=== PATIENT | male | born 1980 | race American Indian/Alaskan Native ===

== ENCOUNTER 2016-10-18 13:26 | Emergency (ER) | payer OTHER ==
[2016-10-18 13:38] VITALS: BMI 23.6
[2016-10-18 13:41] VITALS: TEMP 97.9
[2016-10-18] MEDS ORDERED: Sodium Chloride 0.9% 1,000 ML IV STA ×3 (13:52→15:00)
--- NOTE | 2016-10-18 13:58 | ED PDOC ---
Arrival/HPI - General Chief Complaint: High Blood Sugar Time Seen by Provider: 10/18/16 13:44 Historian: Patient, Spouse - History of Present Illness Narrative History of Present Illness (Text): 10/18/16 13:52 A 36 year old male, whose past medical history includes diabetes on Novolog, presents to the emergency department complaining of high blood sugar. reports patient took 14 units of Novolog approximately 1 hour prior to arrival. Patient notes generalized weakness, nausea and non-bilious non-bloody vomiting. Patient denies any fever, chills, body aches, diarrhea, abdominal pain, urinary symptoms, chest pain, shortness of breath, cough, headache, dizziness or any other complaints. Patient admits to drinking alcohol last night. PMD: Dr. Fierro Time/Duration: 1 hour Symptom Course: Unchanged Quality: Other Context: Home Past Medical History - Provider Review Nursing Documentation Reviewed: Yes - Infectious Disease Hx of Infectious Diseases: None - Tetanus Immunization Tetanus Immunization: Unknown - Reproductive Currently : No - Cardiac Hx Cardiac Disorders: No - Pulmonary Hx Respiratory Disorders: No - Neurological Hx Neurological Disorder: No - HEENT Hx HEENT Disorder: No - Renal Hx Renal Disorder: No - Endocrine/Metabolic Hx Endocrine Disorders: Yes Hx Diabetes Mellitus Type 1: Yes - Hematological/Oncological Hx Blood Disorders: No - Integumentary Hx Dermatological Disorder: No - Musculoskeletal/Rheumatological Hx Falls: No - Gastrointestinal Hx Gastrointestinal Disorders: No - Genitourinary/Gynecological Hx Genitourinary Disorders: No - Psychiatric Hx Psychophysiologic Disorder: No Hx Substance Use: No - Anesthesia Hx Anesthesia: No Hx Anesthesia Reactions: No Hx Malignant Hyperthermia: No Family/Social History - Physician Review Nursing Documentation Reviewed: Yes Family/Social History: No Known Family HX Smoking Status: Former Smoker Hx Alcohol Use: Yes Frequency of alcohol use: Socially Hx Substance Use: No Allergies/Home Meds Allergies/Adverse Reactions: Allergies No Known Allergies Allergy (Verified 06/22/16 16:03) Home Medications: Home Meds Medication Instructions Recorded Confirmed Gabapentin [Neurontin] 400 mg PO BID 09/17/16 09/17/16 Review of Systems - Physician Review All systems were reviewed & negative as marked: Yes - Review of Systems Constitutional: Fatigue (Generalized weakness), Other (High blood sugar). absent: Fevers, Night Sweats Respiratory: absent: SOB Cardiovascular: absent: Chest Pain Gastrointestinal: Nausea, Vomiting. absent: Abdominal Pain, Diarrhea Genitourinary Male: absent: Dysuria, Frequency, Hematuria Musculoskeletal: absent: Myalgias Neurological: absent: Headache, Dizziness Physical Exam Vital Signs Reviewed: Yes Vital Signs Temp Pulse Resp BP Pulse Ox 10/18/16 18:03 94 H 16 135/75 96 10/18/16 16:08 95 H 16 147/74 99 10/18/16 13:27 97.9 F 100 H 18 146/103 H 99 Temperature: Afebrile Blood Pressure: Hypertensive Pulse: Tachycardic Respiratory Rate: Normal Appearance: Positive for: Well-Appearing, Non-Toxic, Comfortable Pain Distress: None Mental Status: Positive for: Alert and Oriented X 3 Finger Stick Blood Glucose: 500 - Systems Exam Head: Present: Atraumatic, Normocephalic Pupils: Present: PERRL Extroacular Muscles: Present: EOMI Conjunctiva: Present: Normal Mouth: Present: Moist Mucous Membranes Neck: Present: Normal Range of Motion Respiratory/Chest: Present: Clear to Auscultation, Good Air Exchange. No: Respiratory Distress, Accessory Muscle Use Cardiovascular: Present: Regular Rate and Rhythm, Normal S1, S2. No: Murmurs Abdomen: Present: Normal Bowel Sounds. No: Tenderness, Distention, Peritoneal Signs Back: Present: Normal Inspection Upper Extremity: Present: Normal Inspection. No: Cyanosis, Edema Lower Extremity: Present: Normal Inspection. No: Edema Neurological: Present: GCS=15, CN II-XII Intact, Speech Normal Skin: Present: Warm, Dry, Normal Color. No: Rashes Psychiatric: Present: Alert, Oriented x 3, Normal Insight, Normal Concentration Medical Decision Making ED Course and Treatment: 10/18/16 13:52 Impression: A 36 year old male with high blood sugar. Patient notes generalized weakness, nausea and non-bilious non-bloody vomiting. Patients last alcoholic drink was last night. Differential Diagnosis included but are not limited to: Hyperglycemia Plan: -- Labs -- IV fluids and Zofran -- Reassess and disposition Progress Notes: Patient was treated with NS 1 L x 3 boluses with signifcant improvement of his glucose. He no longer has symptoms. Zofran improved nausea. He is able to tolerate 2 glasses of PO water. He feels better and wants to go home. He will not drink alcohol like this again in light of his diabetes. He will make sure to follow up with his doctor Dr. Fierro and continue to take his medications. - Critical Care Critical Care Minutes: 60 minutes - Lab Interpretations Lab Results: 10/18/16 14:05 10/18/16 14:05 Lab Results 10/18/16 17:20: pO2 170 H, VBG pH 7.37, VBG pCO2 39.0 L, VBG HCO3 22.5, VBG Total CO2 23.7, VBG O2 Sat (Calc) 97.5 H, VBG Base Excess -2.5 L, VBG Potassium 3.4 L, Sodium 143.0, Chloride 113.0 H, Glucose 234 H, Lactate 1.5, FiO2 21.0, Venous Blood Potassium 3.4 L 10/18/16 16:35: POC Glucose (mg/dL) 211 H 10/18/16 14:56: POC Glucose (mg/dL) 302 H 10/18/16 14:05: WBC 8.0, RBC 4.55, Hgb 14.0, Hct 39.2 L, MCV 86.2, MCH 30.8, MCHC 35.7, RDW 12.8, Plt Count 303, MPV 8.6, Gran % 82.6 H, Lymph % (Auto) 10.1 L, [place] % (Auto) 6.2 H, Eos % (Auto) 0.9 L, Baso % (Auto) 0.2, Gran # 6.61 H, Lymph # 0.8 L, [place] # 0.5, Eos # 0.1, Baso # 0.02, pO2 67 H, VBG pH 7.26 L, VBG pCO2 39.0 L, VBG HCO3 17.5 L, VBG Total CO2 18.7 L, VBG O2 Sat (Calc) 93.4 H, VBG Base Excess -9.0 L, VBG Potassium 3.5 L, Sodium 141.0, Chloride 103.0, Glucose 475 H* D, Lactate 3.5 H, FiO2 21.0, Potassium 3.4 L, Carbon Dioxide 18 L , Anion Gap 25 H, BUN 14, Creatinine 1.1, Est GFR ( Amer) > 60, Est GFR ( Non-Af Amer) > 60, Random Glucose 490 H* D, Calcium 9.2, Phosphorus 4.9 H, Magnesium 1.9, Total Bilirubin 1.0, AST 301 H, ALT 145 H, Alkaline Phosphatase 98, Total Protein 8.0, Albumin 4.4, Globulin 3.6, Albumin/Globulin Ratio 1.2, Venous Blood Potassium 3.5 L, Alcohol, Quantitative < 10 10/18/16 13:44: POC Glucose (mg/dL) > 500 H* I have reviewed the lab results: Yes - Medication Orders Current Medication Orders: Discontinued Medications Sodium Chloride (Sodium Chloride 0.9%) 1,000 mls @ 999 mls/hr IV .Q1H1M STA Stop: 10/18/16 14:52 Last Admin: 10/18/16 14:13 Dose: 999 MLS/HR eMAR Start Stop Document 10/18/16 14:13 HI (Rec: 10/18/16 14:[id number]) Intravenous Solution Start Date 10/18/16 Start Time 14:00 Sodium Chloride (Sodium Chloride 0.9%) 1,000 mls @ 999 mls/hr IV .Q1H1M STA Stop: 10/18/16 14:52 Last Admin: 10/18/16 14:13 Dose: 999 MLS/HR eMAR Start Stop Document 10/18/16 14:13 HI (Rec: 10/18/16 14:13 [place] [id number]) Intravenous Solution Start Date 10/18/16 Start Time 14:00 Sodium Chloride (Sodium Chloride 0.9%) 1,000 mls @ 999 mls/hr IV .Q1H1M STA Stop: 10/18/16 16:00 Last Admin: 10/18/16 16:00 Dose: 999 MLS/HR eMAR Start Stop Document 10/18/16 16:00 HI (Rec: 10/18/16 16:00 [place] [id number]) Intravenous Solution Start Date 10/18/16 Start Time 16:00 Ondansetron HCl (Zofran Inj) 4 mg IVP STAT STA Stop: 10/18/16 14:03 Last Admin: 10/18/16 14:12 Dose: 4 MG IVP Administration Document 10/18/16 14:12 HI (Rec: 10/18/16 14:12 [place] [id number]) Charges for Administration # of IVP Administrations 1 Ondansetron HCl (Zofran Inj) 4 mg IVP STAT STA Stop: 10/18/16 15:52 Last Admin: 10/18/16 16:03 Dose: 4 MG IVP Administration Document 10/18/16 16:03 [place] (Rec: 10/18/16 16:03 [place] [id number]) Charges for Administration # of IVP Administrations 1 Potassium Chloride (K-Dur 20 Meq Er Tab) 40 meq PO STAT STA Stop: 10/18/16 15:01 Last Admin: 10/18/16 16:03 Dose: 40 MEQ - Scribe Statement The provider has reviewed the documentation as recorded by the Scribe Sydney Gonzales Provider Scribe Attestation: All medical record entries made by the Scribe were at my direction and personally dictated by me. I have reviewed the chart and agree that the record accurately reflects my personal performance of the history, physical exam, medical decision making, and the department course for this patient. I have also personally directed, reviewed, and agree with the discharge instructions and disposition. Disposition/Present on Arrival - Present on Arrival Any Indicators Present on Arrival: Yes History of DVT/PE: No History of Uncontrolled Diabetes: Yes Urinary Catheter: No History of Decub. Ulcer: No History Surgical Site Infection Following: None - Disposition Have Diagnosis and Disposition been Completed?: Yes Diagnosis: Diabetes Disposition: HOME/ ROUTINE Disposition Time: 18:00 Patient Plan: Discharge Condition: IMPROVED Discharge Instructions (ExitCare): Dehydration (DC), Diabetes Mellitus Type 2 in Adults (ED) Additional Instructions: Mr Sifuentes, thank you for letting us take care of you today. Your provider was Dr. Doll. You were treated for Vomiting, Hyperglycemia. The emergency medical care you received today was directed at your acute symptoms. If you were prescribed any medication, please fill it and take as directed. It may take several days for your symptoms to resolve. Return to the Emergency Department if your symptoms worsen, do not improve, or if you have any other problems. Please contact your doctor or call one of the physicians/clinics you have been referred to that are listed on the Patient Visit Information form that is included in your discharge packet. Bring any paperwork you were given at discharge with you along with any medications you are taking to your follow up visit. Our treatment cannot replace ongoing medical care by a primary care provider (PCP) outside of the emergency department. Thank you for allowing the [facility] team to be part of your care today. If you had an X-Ray or CT scan: A Radiologist will review the ED reading if any change in treatment is needed we will contact you. If you had a blood, urine, or wound culture: It will take several days for the results, if any change in treatment is needed we will contact you. If you had an STI test: It will take 48 hours for the results. Please call after 1 week if you have not heard back. Prescriptions: Ranitidine HCl [Zantac] 150 mg PO BID PRN #30 tablet PRN Reason: Pain, Mild (1-3) Ondansetron ODT [Zofran ODT] 4 mg PO Q6 #14 odt Referrals: Franck Fierro MD [Family Provider] - Follow up with primary Forms: WORK NOTE
[2016-10-18 14:16] LABS: ADD MANUAL DIFF? NO
[2016-10-18 14:18] LABS: BASO # 0.02 K/mm3 (0.0-2.0); BASO % 0.2 % (0.0-3.0); EOS # 0.1 (0.0-0.7); EOS % 0.9 % (1.5-5.0); GRAN # 6.61 (1.4-6.5); GRAN % 82.6 % (50.0-68.0); HEMATOCRIT 39.2 % (42.0-52.0); LYMPH # 0.8 (1.2-3.4); LYMPH % 10.1 % (22.0-35.0); MEAN CELL VOLUME 86.2 fL (80.0-105.0); MEAN CORPUSCULAR HEMOGLOBIN 30.8 pg (25.0-35.0); MEAN CORPUSCULAR HGB CONC 35.7 g/dl (31.0-37.0); MEAN PLATELET VOLUME 8.6 fl (7.0-11.0); MONO # 0.5 (0.1-0.6); MONO % 6.2 % (1.0-6.0); PLATELET COUNT 303 10^3/uL (120.0-450.0); RED CELL DISTRIBUTION WIDTH 12.8 % (11.5-14.5); VENOUS BLOOD PH 7.26 (7.32-7.43)
[2016-10-18 14:29] LABS: ALB/GLOB RATIO 1.2 (1.1-1.8); ALKALINE PHOSPHATASE 98 U/L (38-133); ALT/SGPT 145 U/L (7-56); AST/SGOT 301 U/L (15-59); BLOOD UREA NITROGEN 14 mg/dL (7-21); CALCIUM 9.2 mg/dL (8.4-10.5); CARBON DIOXIDE 18 mmol/L (21-33); CHLORIDE 99 mmol/L (98-107); GFR AFRICAN-AMERICAN > 60; MAGNESIUM 1.9 mg/dL (1.7-2.2); PHOSPHOROUS 4.9 mg/dL (2.5-4.5); POTASSIUM 3.4 mmol/L (3.6-5.0); SODIUM 139 mmol/L (132-148)
[2016-10-18 14:39] LABS: GLUCOSE,RANDOM 490 mg/dL (70-110)
[2016-10-18] MEDS ORDERED: Potassium Chloride 20 mEq ER Tab PO STA (15:00)
[2016-10-18 16:09] VITALS: RESP 16
[2016-10-18 17:30] LABS: VENOUS BLOOD GAS BASE EXCESS -2.5 mmol/L (0.0-2.0); VENOUS BLOOD PH 7.37 (7.32-7.43)
[2016-10-18 18:05] VITALS: BP 135/75; PULSE 94; O2SAT 96
== END 2016-10-18 17:55 | disposition home or self-care (01) ==
LOC: ED 13:26
DX: E10.65 Type 1 diabetes mellitus with hyperglycemia (principal); Z79.4 Long term (current) use of insulin; Z87.891 Personal history of nicotine dependence
CPT/HCPCS: 80053; 80320; 82803; 82948; 83735; 84100; 85025; 96374; 96376; 99291; J2405; J7040

== ENCOUNTER 2016-10-19 11:27 | Inpatient (IN) | payer OTHER ==
[2016-10-19 11:27] VITALS: BMI 23.6
[2016-10-19] MEDS ORDERED: Sodium Chloride 0.9% 1,000 ML IV STA ×4 (11:40→13:42)
--- NOTE | 2016-10-19 11:47 | ED PDOC ---
Arrival/HPI - General Time Seen by Provider: 10/19/16 11:30 Historian: Patient - Critical Care Critical Care Minutes: 60 minutes - History of Present Illness Narrative History of Present Illness (Text): 10/19/16 11:32 Jan Sifuentes is a 36 year old male whose past medical history includes Diabetes (on Novolog) and Gastric Ulcers who presents to the Emergency department complaining of persistent vomiting. Symptoms are also accompanied with multiple diarrheal episodes. Patient states he has been compliant with medications prescribed to him in the Emergency department but has not taken his Diabetes medications since yesterday. Patient the day before yesterday drank heavily and began vomiting any fluids or solids starting yesterday. He was hydrated and sugar was controlled in the Emergency department and was discharged home. Patient denies any fever, chills, chest pain, shortness of breath, abdominal pain, urinary symptoms, back pain, neck pain, headache, dizziness, or any other complaints. PMD: Dr. Fierro Time/Duration: Other (1-2 days) Symptom Onset: Sudden Activities at Onset: Light Context: Home Past Medical History - Provider Review Nursing Documentation Reviewed: Yes - Infectious Disease Hx of Infectious Diseases: None - Tetanus Immunization Tetanus Immunization: Unknown - Reproductive Currently : No - Cardiac Hx Cardiac Disorders: No - Pulmonary Hx Respiratory Disorders: No - Neurological Hx Neurological Disorder: No - HEENT Hx HEENT Disorder: No - Renal Hx Renal Disorder: No - Endocrine/Metabolic Hx Endocrine Disorders: Yes Hx Diabetes Mellitus Type 1: Yes - Hematological/Oncological Hx Blood Disorders: No - Integumentary Hx Dermatological Disorder: No - Musculoskeletal/Rheumatological Hx Falls: No - Gastrointestinal Hx Gastrointestinal Disorders: No - Genitourinary/Gynecological Hx Genitourinary Disorders: No - Psychiatric Hx Psychophysiologic Disorder: No Hx Substance Use: No - Anesthesia Hx Anesthesia: No Hx Anesthesia Reactions: No Hx Malignant Hyperthermia: No Family/Social History - Physician Review Nursing Documentation Reviewed: Yes Family/Social History: No Known Family HX Smoking Status: Former Smoker Hx Alcohol Use: Yes Hx Substance Use: No Allergies/Home Meds Allergies/Adverse Reactions: Allergies No Known Allergies Allergy (Verified 10/19/16 14:35) Home Medications: Home Meds Medication Instructions Recorded Confirmed Gabapentin [Neurontin] 400 mg PO BID 09/17/16 10/19/16 Insulin Aspart, Recombinant 0 unit 04/15/17 [Novolog] Review of Systems - Physician Review All systems were reviewed & negative as marked: Yes - Review of Systems Constitutional: Normal. absent: Fevers Eyes: Normal ENT: Normal Respiratory: Normal. absent: SOB, Cough Cardiovascular: Normal Gastrointestinal: Diarrhea, Nausea, Vomiting. absent: Abdominal Pain Genitourinary Male: Normal. absent: Frequency, Hematuria Musculoskeletal: Normal. absent: Back Pain, Neck Pain Skin: Normal Neurological: Normal. absent: Headache, Dizziness Endocrine: Normal Hemo/Lymphatic: Normal Psychiatric: Normal Physical Exam Vital Signs Reviewed: Yes Vital Signs Temp Pulse Resp BP Pulse Ox 10/19/16 11:45 97.6 F 102 H 18 148/86 100 10/19/16 11:39 97.6 F 107 H 20 148/86 99 Temperature: Afebrile Blood Pressure: Normal Pulse: Regular Respiratory Rate: Normal Appearance: Positive for: Well-Appearing, Non-Toxic, Comfortable Pain Distress: None Mental Status: Positive for: Alert and Oriented X 3 - Systems Exam Head: Present: Atraumatic, Normocephalic Pupils: Present: PERRL Extroacular Muscles: Present: EOMI Conjunctiva: Present: Normal Mouth: Present: Moist Mucous Membranes Neck: Present: Normal Range of Motion Respiratory/Chest: Present: Clear to Auscultation, Good Air Exchange. No: Respiratory Distress, Accessory Muscle Use Cardiovascular: Present: Regular Rate and Rhythm, Normal S1, S2. No: Murmurs Abdomen: Present: Normal Bowel Sounds. No: Tenderness, Distention, Peritoneal Signs Rectal: Present: Other (Guaic Positive) Neurological: Present: GCS=15, CN II-XII Intact, Speech Normal Skin: Present: Warm, Dry, Normal Color. No: Rashes Psychiatric: Present: Alert, Oriented x 3, Normal Insight, Normal Concentration Medical Decision Making ED Course and Treatment: 10/19/16 11:32 Impression: 36 year old male with persistent vomiting and diarrhea since yesterday. Vomit is noticeably dark. Differential Diagnosis include but are not limited to: Gastric Ulvers vs. GI Bleed vs. Gastritis vs. DKA Plan: -- Chest X-ray -- EKG -- Protonix -- IV Fluids -- Zofran -- Labs -- Reassess and disposition Prior Visits: Notes and results from previous visits were reviewed. Patient was last seen in the Emergency department Progress Notes: 10/19/16 12:22 EKG: Ordered, reviewed, and independently interpreted the EKG. Rate : 102 BPM Rhythm : Sinus Tachycardia Interpretation : RBBB 10/19/16 13:23 Procedure: Chest X-Ray Dictator: Hua Patino MD Impression No active disease. No significant interval change compared to the prior examination(s). 10/19/16 13:41 Glucose taken >410 10/19/16 14:01 Patient noted to have elevated glucose with AG in the 30's and low bicarb. Insulin bolus and drip ordered. Patient already received 2 liters and 2 additional NS liters were ordered. Case discussed with Dr. Christopher who states he will come in and evaluate the patient. 10/19/16 14:13 Dr. Bravo will accept patient into his service. - Critical Care Critical Care Minutes: 60 minutes - Lab Interpretations Lab Results: 10/19/16 12:20 10/19/16 13:14 Lab Results 10/19/16 14:05: pO2 192 H, VBG pH 7.03 L*, VBG pCO2 12.0 L*, VBG HCO3 3.2 L, VBG Total CO2 3.6 L, VBG O2 Sat (Calc) 98.2 H, VBG Base Excess -25.6 L, VBG Potassium 4.5, Sodium 135.0, Chloride 108.0 H, Glucose 511 H* D, Lactate 1.6, FiO2 21.0, Venous Blood Potassium 4.5 10/19/16 13:14: Sodium 138, Chloride 106, Potassium 4.6, Carbon Dioxide < 5 L D , Anion Gap 32 H, BUN 9, Creatinine 1.0, Est GFR ( Amer) > 60, Est GFR ( Non-Af Amer) > 60, Random Glucose 505 H*, Calcium 8.3 L, Total Bilirubin 0.8, AST 54, ALT 89 H, Alkaline Phosphatase 119, Total Protein 6.8, Albumin 3.7, Globulin 3.0, Albumin/Globulin Ratio 1.2, Lipase 63 10/19/16 12:50: Blood Type B POSITIVE, Antibody Screen Negative, BBK History Checked Patient has bt 10/19/16 12:20: WBC 11.2 H D, RBC 4.76, Hgb 15.0, Hct 42.6, MCV 89.5, MCH 31.5, MCHC 35.2, RDW 13.6, Plt Count 365, MPV 9.8, Gran % 77.1 H, Lymph % (Auto) 17.0 L, [place] % (Auto) 4.9, Eos % (Auto) 0.4 L, Baso % (Auto) 0.6, Gran # 8.67 H, Lymph # 1.9, [place] # 0.6, Eos # 0.0, Baso # 0.07, PT 11.6, INR 1.07, APTT 26.0 I have reviewed the lab results: Yes Interpretation: Abnormal lab values - RAD Interpretation Narrative RAD Interpretations (Text): 10/19/16 13:23 Procedure: Chest X-Ray Dictator: Hua Patino MD FINDINGS: LUNGS: No active pulmonary disease. PLEURA: No significant pleural effusion identified, no pneumothorax apparent. CARDIOVASCULAR: Normal. OSSEOUS STRUCTURES: No significant abnormalities. VISUALIZED UPPER ABDOMEN: Normal. OTHER FINDINGS: None. Impression No active disease. No significant interval change compared to the prior examination(s). Radiology Orders: 10/19/16 11:39 CHEST PORTABLE [RAD] Stat Spread Cutter: Radiologist - EKG Interpretation Interpreted by ED Physician: Yes - Medication Orders Current Medication Orders: Insulin Human Regular 100 (units/ Sodium Chloride) 100 mls @ 7 mls/hr IV .[id number] PRN; Protocol; 7 UNITS/HR PRN Reason: TITRATE PER MD ORDER Sodium Bicarbonate 75 meq/ (Sodium Chloride) 1,075 mls @ 200 mls/hr IV .Q5H23M PJ Ondansetron HCl (Zofran Inj) 4 mg IVP Q4H PRN PRN Reason: Nausea/Vomiting Pantoprazole Sodium (Protonix Inj) 40 mg IVP Q12H PJ Discontinued Medications Sodium Chloride (Sodium Chloride 0.9%) 1,000 mls @ 999 mls/hr IV .Q1H1M STA Stop: 10/19/16 12:40 Last Admin: 10/19/16 12:15 Dose: 999 MLS/HR eMAR Start Stop Document 10/19/16 12:15 HI (Rec: 10/19/16 12:15 HI [id number]) Intravenous Solution Start Date 10/19/16 Start Time 11:36 Sodium Chloride (Sodium Chloride 0.9%) 1,000 mls @ 999 mls/hr IV .Q1H1M STA Stop: 10/19/16 13:16 Last Admin: 10/19/16 12:22 Dose: 999 MLS/HR eMAR Start Stop Document 10/19/16 12:22 HI (Rec: 10/19/16 12:22 HI [id number]) Intravenous Solution Start Date 10/19/16 Start Time 12:22 Sodium Chloride (Sodium Chloride 0.9%) 1,000 mls @ 999 mls/hr IV .Q1H1M STA Stop: 10/19/16 14:42 Last Admin: 10/19/16 13:50 Dose: 999 MLS/HR eMAR Start Stop Document 10/19/16 13:50 EQ (Rec: 10/19/16 13:50 EQ [id number]) Intravenous Solution Start Date 10/19/16 Start Time 13:50 Sodium Chloride (Sodium Chloride 0.9%) 1,000 mls @ 999 mls/hr IV .Q1H1M STA Stop: 10/19/16 14:42 Last Admin: 10/19/16 13:50 Dose: 999 MLS/HR eMAR Start Stop Document 10/19/16 13:50 EQ (Rec: 10/19/16 13:50 EQ [id number]) Intravenous Solution Start Date 10/19/16 Start Time 13:50 Insulin Human Regular (Humulin R) 10 units IVP STAT STA Stop: 10/19/16 13:42 Last Admin: 10/19/16 13:50 Dose: 10 UNITS IVP Administration Document 10/19/16 13:50 EQ (Rec: 10/19/16 13:50 EQ [id number]) Charges for Administration # of IVP Administrations 1 Ondansetron HCl (Zofran Inj) 4 mg IVP STAT STA Stop: 10/19/16 11:37 Last Admin: 10/19/16 12:15 Dose: 4 MG IVP Administration Document 10/19/16 12:15 HI (Rec: 10/19/16 12:15 HI [id number]) Charges for Administration # of IVP Administrations 1 Pantoprazole Sodium (Protonix Inj) 80 mg IVP STAT STA Stop: 10/19/16 11:37 Last Admin: 10/19/16 12:15 Dose: 80 MG IVP Administration Document 10/19/16 12:15 HI (Rec: 10/19/16 12:15 RI [id number]) Charges for Administration # of IVP Administrations 2 - Scribe Statement The provider has reviewed the documentation as recorded by the Daveibchan Littlejohn Provider Attestation: All medical record entries made by the Daveibe were at my direction and personally dictated by me. I have reviewed the chart and agree that the record accurately reflects my personal performance of the history, physical exam, medical decision making, and the department course for this patient. I have also personally directed, reviewed, and agree with the discharge instructions and disposition. Disposition/Present on Arrival - Present on Arrival Any Indicators Present on Arrival: Yes History of DVT/PE: No History of Uncontrolled Diabetes: Yes Urinary Catheter: No History Surgical Site Infection Following: None - Disposition Have Diagnosis and Disposition been Completed?: Yes Diagnosis: Diabetic ketoacidosis, GI bleed Disposition: HOSPITALIZED Disposition Time: 14:14 Patient Plan: Admission, ICU Patient Problems: Current Active Problems Problem Status Diagnosed Diabetic ketoacidosis Acute GI bleed Acute Condition: CRITICAL
[2016-10-19 12:12] VITALS: O2SAT 100
[2016-10-19 12:28] LABS: ADD MANUAL DIFF? NO
[2016-10-19 12:36] LABS: BASO # 0.07 K/mm3 (0.0-2.0); BASO % 0.6 % (0.0-3.0); EOS % 0.4 % (1.5-5.0); GRAN # 8.67 (1.4-6.5); GRAN % 77.1 % (50.0-68.0); HEMATOCRIT 42.6 % (42.0-52.0); LYMPH # 1.9 (1.2-3.4); MEAN CELL VOLUME 89.5 fL (80.0-105.0); MEAN CORPUSCULAR HEMOGLOBIN 31.5 pg (25.0-35.0); MEAN CORPUSCULAR HGB CONC 35.2 g/dl (31.0-37.0); MEAN PLATELET VOLUME 9.8 fl (7.0-11.0); MONO # 0.6 (0.1-0.6); MONO % 4.9 % (1.0-6.0); PLATELET COUNT 365 10^3/uL (120.0-450.0); RED CELL DISTRIBUTION WIDTH 13.6 % (11.5-14.5); WHITE BLOOD COUNT 11.2 10^3/ul (4.5-11.0)
[2016-10-19 12:41] LABS: INR 1.07 (0.93-1.08)
--- NOTE | 2016-10-19 13:25 | RAD ---
HISTORY: GI bleed. Technique: Single view portable semi erect @ 12:08. COMPARISON: 09/17/2016. FINDINGS: LUNGS: No active pulmonary disease. PLEURA: No significant pleural effusion identified, no pneumothorax apparent. CARDIOVASCULAR: Normal. OSSEOUS STRUCTURES: No significant abnormalities. VISUALIZED UPPER ABDOMEN: Normal. OTHER FINDINGS: None. IMPRESSION: No active disease. No significant interval change compared to the prior examination(s).
[2016-10-19 13:27] LABS: ALB/GLOB RATIO 1.2 (1.1-1.8); ALKALINE PHOSPHATASE 119 U/L (38-133); ALT/SGPT 89 U/L (7-56); AST/SGOT 54 U/L (15-59); BILIRUBIN,TOTAL 0.8 mg/dL (0.2-1.3); BLOOD UREA NITROGEN 9 mg/dL (7-21); CALCIUM 8.3 mg/dL (8.4-10.5); CHLORIDE 106 mmol/L (98-107); GFR AFRICAN-AMERICAN > 60; LIPASE 63 U/L (23-300); POTASSIUM 4.6 mmol/L (3.6-5.0); SODIUM 138 mmol/L (132-148); TOTAL PROTEIN 6.8 g/dL (5.8-8.3)
[2016-10-19 13:34] LABS: CARBON DIOXIDE < 5 mmol/L (21-33)
[2016-10-19 13:35] LABS: GLUCOSE,RANDOM 505 mg/dL (70-110)
[2016-10-19] MEDS ORDERED: Insulin Regular 1 UNITS/0.01 ML ML IVP STA (13:41)
[2016-10-19] MEDS ORDERED: Insulin Regular 100 UNITS in Sodium Chloride 0.9% 99 ML IV PRN (13:55)
[2016-10-19 14:10] LABS: VENOUS BLOOD GAS BASE EXCESS -25.6 mmol/L (0.0-2.0)
[2016-10-19 14:14] LABS: VENOUS BLOOD PH 7.03 (7.32-7.43)
--- NOTE | 2016-10-19 14:40 | CP.CCUPN ---
CCU Subjective - Physician Review Events Since Last Encounter (Free Text): 10/19/16 14:37 36yo male pt with h\o DM and multiple episodes of DKA in the past. Pt presented with nausea , vomiting and diarrhea that started yesterday. Pt stated day before yesterday it was his birthday and he consume excessive amounts of alcohol. Yesterday in AM when he woke up, he was very nauseous and had multiple episodes of dark (non-bloody vomitus) and also had multiple episodes of diarrhea. He presented to ED yesterday and subsequently asked to be discharged home when he felt better. Overnight his condition worsened and he presented to ED today. Pt stated he is continuing to have nausea and vomiting and that he also had episodes of dark diarrhea at home. Pt seen and examined at bedside. Pt is hemodynamically stable and in currently nauseous and is vomiting. Pt denies any fever, chills, chest pain, palpitations, cough or dysuria. Pt admitted to having episodes of shortness of breath. PMH: DM, PUD, ETOH abuse CCU Objective - Vital Signs / Intake & Output Vital Signs (Last 4 hours): Vital Signs Temp Pulse Resp BP Pulse Ox 10/19/16 11:45 97.6 F 102 H 18 148/86 100 10/19/16 11:39 97.6 F 107 H 20 148/86 99 Intake and Output (Last 8hrs): Intake & Output 10/18/16 10/19/16 10/19/16 22:59 06:59 14:59 Weight 155 lb - Physical Exam Head: Positive for: Atraumatic, Normocephalic Conjunctiva: Positive for: Normal Mouth: Positive for: Moist Mucous Membranes Neck: Positive for: Normal Range of Motion Respiratory/Chest: Positive for: Clear to Auscultation, Good Air Exchange. Negative for: Respiratory Distress, Accessory Muscle Use Cardiovascular: Positive for: Regular Rate and Rhythm, Normal S1, S2. Negative for: Murmurs Abdomen: Positive for: Normal Bowel Sounds. Negative for: Tenderness, Distention, Peritoneal Signs Lower Extremity: Positive for: Normal Inspection. Negative for: Edema, Erythema Neurological: Positive for: GCS=15, CN II-XII Intact, Speech Normal Skin: Positive for: Warm, Dry, Normal Color. Negative for: Rashes Psychiatric: Positive for: Alert, Oriented x 3, Normal Insight, Normal Concentration - Medications Active Medications: Active Medications Generic Name Dose Route Start Last Admin Trade Name Freq PRN Reason Stop Dose Admin Sodium Chloride 1,000 mls @ 999 mls/hr 10/19/16 13:42 10/19/16 13:50 Sodium Chloride 0.9% IV 10/19/16 14:42 999 mls/hr .Q1H1M STA Administration Sodium Chloride 1,000 mls @ 999 mls/hr 10/19/16 13:42 10/19/16 13:50 Sodium Chloride 0.9% IV 10/19/16 14:42 999 mls/hr .Q1H1M STA Administration Insulin Human Regular 100 100 mls @ 7 mls/hr 10/19/16 13:55 units/ Sodium Chloride IV .[id number] PRN TITRATE PER MD ORDER Protocol 7 UNITS/HR Sodium Bicarbonate 75 meq/ 1,075 mls @ 200 mls/hr 10/19/16 14:45 Sodium Chloride IV .Q5H23M PJ Pantoprazole Sodium 40 mg 10/19/16 20:00 Protonix Inj IVP Q12H PJ - Patient Studies Lab Studies: Lab Studies 10/19/16 10/19/16 10/19/16 Range/Units 14:05 13:14 12:50 WBC (4.5-11.0) 10^3/ul RBC (3.5-6.1) 10^6/uL Hgb (14.0-18.0) gm/dL Hct (42.0-52.0) % MCV (80.0-105.0) fL MCH (25.0-35.0) pg MCHC (31.0-37.0) g/dl RDW (11.5-14.5) % Plt Count (120.0-450.0) 10^3/uL MPV (7.0-11.0) fl Gran % (50.0-68.0) % Lymph % (Auto) (22.0-35.0) % Bradley % (Auto) (1.0-6.0) % Eos % (Auto) (1.5-5.0) % Baso % (Auto) (0.0-3.0) % Gran # (1.4-6.5) Lymph # (1.2-3.4) Bradley # (0.1-0.6) Eos # (0.0-0.7) Baso # (0.0-2.0) K/mm3 PT (9.9-11.8) Seconds INR (0.93-1.08) APTT (23.7-30.8) Seconds pO2 192 H (30-55) mm/Hg VBG pH 7.03 L* (7.32-7.43) VBG pCO2 12.0 L* (40-60) VBG HCO3 3.2 L (21-28) mmol/l VBG Total CO2 3.6 L (22-28) mmol.L VBG O2 Sat (Calc) 98.2 H (40-65) % VBG Base Excess -25.6 L (0.0-2.0) mmol/L VBG Potassium 4.5 (3.6-5.2) mmol/L Sodium 135.0 138 (132-148) mmol/L Chloride 108.0 H 106 (98-107) mmol/L Glucose 511 H* D (75-110) mg/dl Lactate 1.6 (0.7-2.1) mmol/L FiO2 21.0 % Potassium 4.6 (3.6-5.0) mmol/L Carbon Dioxide < 5 L D (21-33) mmol/L Anion Gap 32 H (10-20) BUN 9 (7-21) mg/dL Creatinine 1.0 (0.5-1.4) mg/dL Est GFR ( Amer) > 60 Est GFR (Non-Af Amer) > 60 Random Glucose 505 H* (70-110) mg/dL Calcium 8.3 L (8.4-10.5) mg/dL Total Bilirubin 0.8 (0.2-1.3) mg/dL AST 54 (15-59) U/L ALT 89 H (7-56) U/L Alkaline Phosphatase 119 (38-133) U/L Total Protein 6.8 (5.8-8.3) g/dL Albumin 3.7 (3.0-4.8) g/dL Globulin 3.0 gm/dL Albumin/Globulin Ratio 1.2 (1.1-1.8) Lipase 63 (23-300) U/L Venous Blood Potassium 4.5 (3.6-5.2) mmol/L Blood Type B POSITIVE Antibody Screen Negative BBK History Checked Patient has bt 10/19/16 Range/Units 12:20 WBC 11.2 H D (4.5-11.0) 10^3/ul RBC 4.76 (3.5-6.1) 10^6/uL Hgb 15.0 (14.0-18.0) gm/dL Hct 42.6 (42.0-52.0) % MCV 89.5 (80.0-105.0) fL MCH 31.5 (25.0-35.0) pg MCHC 35.2 (31.0-37.0) g/dl RDW 13.6 (11.5-14.5) % Plt Count 365 (120.0-450.0) 10^3/uL MPV 9.8 (7.0-11.0) fl Gran % 77.1 H (50.0-68.0) % Lymph % (Auto) 17.0 L (22.0-35.0) % Bradley % (Auto) 4.9 (1.0-6.0) % Eos % (Auto) 0.4 L (1.5-5.0) % Baso % (Auto) 0.6 (0.0-3.0) % Gran # 8.67 H (1.4-6.5) Lymph # 1.9 (1.2-3.4) Bradley # 0.6 (0.1-0.6) Eos # 0.0 (0.0-0.7) Baso # 0.07 (0.0-2.0) K/mm3 PT 11.6 (9.9-11.8) Seconds INR 1.07 (0.93-1.08) APTT 26.0 (23.7-30.8) Seconds pO2 (30-55) mm/Hg VBG pH (7.32-7.43) VBG pCO2 (40-60) VBG HCO3 (21-28) mmol/l VBG Total CO2 (22-28) mmol.L VBG O2 Sat (Calc) (40-65) % VBG Base Excess (0.0-2.0) mmol/L VBG Potassium (3.6-5.2) mmol/L Sodium (132-148) mmol/L Chloride (98-107) mmol/L Glucose (75-110) mg/dl Lactate (0.7-2.1) mmol/L FiO2 % Potassium (3.6-5.0) mmol/L Carbon Dioxide (21-33) mmol/L Anion Gap (10-20) BUN (7-21) mg/dL Creatinine (0.5-1.4) mg/dL Est GFR ( Amer) Est GFR (Non-Af Amer) Random Glucose (70-110) mg/dL Calcium (8.4-10.5) mg/dL Total Bilirubin (0.2-1.3) mg/dL AST (15-59) U/L ALT (7-56) U/L Alkaline Phosphatase (38-133) U/L Total Protein (5.8-8.3) g/dL Albumin (3.0-4.8) g/dL Globulin gm/dL Albumin/Globulin Ratio (1.1-1.8) Lipase (23-300) U/L Venous Blood Potassium (3.6-5.2) mmol/L Blood Type Antibody Screen BBK History Checked Laboratory Results - last 24 hr 10/19/16 10/19/16 10/19/16 12:20 12:50 13:14 WBC 11.2 H D RBC 4.76 Hgb 15.0 Hct 42.6 MCV 89.5 MCH 31.5 MCHC 35.2 RDW 13.6 Plt Count 365 MPV 9.8 Gran % 77.1 H Lymph % (Auto) 17.0 L Bradley % (Auto) 4.9 Eos % (Auto) 0.4 L Baso % (Auto) 0.6 Gran # 8.67 H Lymph # 1.9 Bradley # 0.6 Eos # 0.0 Baso # 0.07 PT 11.6 INR 1.07 APTT 26.0 pO2 VBG pH VBG pCO2 VBG HCO3 VBG Total CO2 VBG O2 Sat (Calc) VBG Base Excess VBG Potassium Glucose Lactate FiO2 Sodium 138 Potassium 4.6 Chloride 106 Carbon Dioxide < 5 L D Anion Gap 32 H BUN 9 Creatinine 1.0 Est GFR ( Amer) > 60 Est GFR (Non-Af Amer) > 60 Random Glucose 505 H* Calcium 8.3 L Total Bilirubin 0.8 AST 54 ALT 89 H Alkaline Phosphatase 119 Total Protein 6.8 Albumin 3.7 Globulin 3.0 Albumin/Globulin Ratio 1.2 Lipase 63 Venous Blood Potassium Blood Type B POSITIVE Antibody Screen Negative BBK History Checked Patient has bt 10/19/16 14:05 WBC RBC Hgb Hct MCV MCH MCHC RDW Plt Count MPV Gran % Lymph % (Auto) Bradley % (Auto) Eos % (Auto) Baso % (Auto) Gran # Lymph # Bradley # Eos # Baso # PT INR APTT pO2 192 H VBG pH 7.03 L* VBG pCO2 12.0 L* VBG HCO3 3.2 L VBG Total CO2 3.6 L VBG O2 Sat (Calc) 98.2 H VBG Base Excess -25.6 L VBG Potassium 4.5 Glucose 511 H* D Lactate 1.6 FiO2 21.0 Sodium 135.0 Potassium Chloride 108.0 H Carbon Dioxide Anion Gap BUN Creatinine Est GFR ( Amer) Est GFR (Non-Af Amer) Random Glucose Calcium Total Bilirubin AST ALT Alkaline Phosphatase Total Protein Albumin Globulin Albumin/Globulin Ratio Lipase Venous Blood Potassium 4.5 Blood Type Antibody Screen BBK History Checked EKG/Cardiology Studies: Cardiology / EKG Studies 10/19/16 11:39 ELECTROCARDIOGRAM Stat Comment: Reason For Exam: gi bleed Fingerstick Blood Sugar Results: 497 Review of Systems - Review of Systems Systems not reviewed;Unavailable: Acuity of Condition Critical Care Progress Note - Ventilator Checklist Head of Bed 30 Degrees: Yes PUD Prophalyxis: Yes DVT Prophylaxis: Yes Assessment/Plan - Assessment and Plan (Free Text) Plan: DKA \ ETOH abuse \ ro GIB \ -hemodynamic monitoring to maintain MAP>65; currently stable -o2 supplementation to maintain Spo2>90 Pao2>60; currently comfortable on room air -CXR reviewed , and shows no visible opacification -f\u Bun\Cr and U\o; IVF with 1/2NS and 75meq bicarb -continue Insulin drip as per protocol and BGM q1h -monitor CH7 for Anion gap q4hrs -monitor and replace e-lites -NPO diet and aspiration precautions -PPI IV q12h -GI team eval -f\u serial H\H and monitor for bleeding -f\u HbA1c -consider endocrine eval -thiamine , folic acid and MVI -monitor foe ETOH withdrawal -DVT prophylaxis DW ED team and nursing staff CCM eval time 40min
--- NOTE | 2016-10-19 15:01 | CP.PCM.HP ---
<Maryana Tao - Last Filed: 10/19/16 18:15> History of Present Illness - History of Present Illness History of Present Illness: 36 yo M w/PMhx of uncontrolled DM and PUD presents today with multiple vomiting episodes and diarrheal episodes that started after his own birthday green party on where he ingested more than 20 servings of ETOH. Vomit is dark brown and diarrhea is reported to be without blood. Recent ED evaluation yesterday, with similar cc, when he was treated with IV fluids and insulin. Returned to ED for worsening of symptoms. Denies fever, chest pain, abdominal pain, cough, urinary symptoms. PMHx: uncontrolled DM, PUD Sx: none allergies: NKDA MEdications: Novolog, levemir, gabapentin Social: occasional smoker, drank over 20 servings etoh this week, and denies illicit drugs PMD: dr. Huber Present on Admission - Present on Admission Any Indicators Present on Admission: Yes History of Uncontrolled Diabetes: Yes Review of Systems - Review of Systems All systems: reviewed and no additional remarkable complaints except - Constitutional Constitutional: Chills. absent: Fever - EENT Eyes: absent: Change in Vision - Cardiovascular Cardiovascular: absent: Chest Pain, Dyspnea - Respiratory Respiratory: absent: Cough, Dyspnea - Gastrointestinal Gastrointestinal: Diarrhea, Vomiting. absent: Abdominal Pain - Genitourinary Genitourinary: absent: Change in Urinary Stream, Hematuria Past Patient History - Infectious Disease Hx of Infectious Diseases: None - Tetanus Immunizations Tetanus Immunization: Unknown - Past Social History Smoking Status: Former Smoker - CARDIAC Hx Cardiac Disorders: No - PULMONARY Hx Respiratory Disorders: No - NEUROLOGICAL Hx Neurological Disorder: No - HEENT Hx HEENT Problems: No - RENAL Hx Chronic Kidney Disease: No - ENDOCRINE/METABOLIC Hx Endocrine Disorders: Yes Hx Diabetes Mellitus Type 1: Yes - HEMATOLOGICAL/ONCOLOGICAL Hx Blood Disorders: No - INTEGUMENTARY Hx Dermatological Problems: No - MUSCULOSKELETAL/RHEUMATOLOGICAL Hx Falls: No - GASTROINTESTINAL Hx Gastrointestinal Disorders: No - GENITOURINARY/GYNECOLOGICAL Hx Genitourinary Disorders: No - PSYCHIATRIC Hx Psychophysiologic Disorder: No Hx Substance Use: No - SURGICAL HISTORY Hx Surgeries: No - ANESTHESIA Hx Anesthesia: No Hx Anesthesia Reactions: No Hx Malignant Hyperthermia: No Meds Allergies/Adverse Reactions: Allergies Allergy/AdvReac Type Severity Reaction Status Date / Time No Known Allergies Allergy Verified 10/19/16 15:59 Physical Exam - Constitutional Appears: Toxic, In Acute Distress - Head Exam Head Exam: ATRAUMATIC, NORMOCEPHALIC - Eye Exam Eye Exam: EOMI, Normal appearance Pupil Exam: NORMAL ACCOMODATION, PERRL - Respiratory Exam Respiratory Exam: Clear to Auscultation Bilateral, NORMAL BREATHING PATTERN - Cardiovascular Exam Cardiovascular Exam: Tachycardia, +S1, +S2 - GI/Abdominal Exam GI & Abdominal Exam: Soft. absent: Tenderness - Exam External exam: absent: Lacerations, Lesions - Extremities Exam Extremities exam: Positive for: pedal pulses present. Negative for: tenderness - Neurological Exam Neurological exam: Alert, Oriented x3 - Skin Skin Exam: Dry, Intact Results - Vital Signs Recent Vital Signs: Last Vital Signs Temp 97.6 F 10/19/16 11:45 Pulse 102 H 10/19/16 11:45 Resp 18 10/19/16 11:45 BP 148/86 10/19/16 11:45 Pulse Ox 100 10/19/16 11:45 - Labs Result Diagrams: 10/19/16 16:55 10/19/16 16:55 Assessment & Plan - Assessment and Plan (Free Text) Plan: 36 yo M w/PMHx of uncontrolled DM and PUD presents with guaic positive vomit, 2 day history of vomiting over 15 times, and 10 episodes of diarrhea after ingesting over 20 servings of etoh. Initial blood glucose level is 505 with anion gap of 32. Diabeteic Keto acidosis: Pt was accepted to ICU care Insulin Drip Zofran IV Protonix IV ETOH history: large ingestion of etoh within 48 hours [place] protocol Ativan PRN Folate, Thiamine and multivitamin IV fluids GI bleed: Guiac positive vomitus GI consulted, help appreciated stool guiac ordered monitor h/h ppx measures: protonix, scd <Robert Lloyd B - Last Filed: 10/20/16 10:27> Results - Vital Signs Recent Vital Signs: Last Vital Signs Temp 99.5 F 10/20/16 00:00 Pulse 85 10/20/16 04:00 Resp 12 10/20/16 04:00 BP 124/75 10/20/16 04:00 Pulse Ox 100 10/20/16 04:00 - Labs Result Diagrams: 10/20/16 05:30 10/20/16 05:30 Labs: Laboratory Results - last 24 hr 10/19/16 10/19/16 10/19/16 14:20 16:00 16:08 WBC RBC Hgb Hct MCV MCH MCHC RDW Plt Count MPV Sodium Potassium Chloride Carbon Dioxide Anion Gap BUN Creatinine Est GFR ( Amer) Est GFR (Non-Af Amer) POC Glucose (mg/dL) 248 H Random Glucose Calcium Phosphorus 4.3 Magnesium 1.9 Urine Color Yellow Urine Appearance Clear Urine pH 5.5 Ur Specific [place] 1.025 Urine Protein 30 H Urine Glucose (UA) >=1000 Urine Ketones >=80 Urine Blood Small H Urine Nitrate Negative Urine Bilirubin Negative Urine Urobilinogen 0.2 Ur Leukocyte Esterase Negative Urine RBC 2 - 5 Urine WBC 0 - 2 Ur Epithelial Cells None Urine Bacteria Few Alcohol, Quantitative < 10 10/19/16 10/19/16 10/19/16 16:55 17:24 18:09 WBC 12.2 H RBC 4.16 Hgb 12.8 L Hct 36.8 L MCV 88.5 MCH 30.8 MCHC 34.8 RDW 13.4 Plt Count 293 MPV 8.6 Sodium 139 Potassium 4.1 Chloride 110 H Carbon Dioxide 8 L D Anion Gap 25 H BUN 8 Creatinine 0.9 Est GFR ( Amer) > 60 Est GFR (Non-Af Amer) > 60 POC Glucose (mg/dL) 188 H 162 H Random Glucose 241 H Calcium 7.8 L Phosphorus 2.2 L Magnesium 2.1 Urine Color Urine Appearance Urine pH Ur Specific [place] Urine Protein Urine Glucose (UA) Urine Ketones Urine Blood Urine Nitrate Urine Bilirubin Urine Urobilinogen Ur Leukocyte Esterase Urine RBC Urine WBC Ur Epithelial Cells Urine Bacteria Alcohol, Quantitative 10/19/16 10/19/16 10/19/16 19:52 20:55 21:57 WBC RBC Hgb Hct MCV MCH MCHC RDW Plt Count MPV Sodium Potassium Chloride Carbon Dioxide Anion Gap BUN Creatinine Est GFR ( Amer) Est GFR (Non-Af Amer) POC Glucose (mg/dL) 160 H 138 H 146 H Random Glucose Calcium Phosphorus Magnesium Urine Color Urine Appearance Urine pH Ur Specific [place] Urine Protein Urine Glucose (UA) Urine Ketones Urine Blood Urine Nitrate Urine Bilirubin Urine Urobilinogen Ur Leukocyte Esterase Urine RBC Urine WBC Ur Epithelial Cells Urine Bacteria Alcohol, Quantitative 10/19/16 10/20/16 10/20/16 23:13 00:05 00:58 WBC RBC Hgb Hct MCV MCH MCHC RDW Plt Count MPV Sodium Potassium Chloride Carbon Dioxide Anion Gap BUN Creatinine Est GFR ( Amer) Est GFR (Non-Af Amer) POC Glucose (mg/dL) 153 H 144 H 155 H Random Glucose Calcium Phosphorus Magnesium Urine Color Urine Appearance Urine pH Ur Specific [place] Urine Protein Urine Glucose (UA) Urine Ketones Urine Blood Urine Nitrate Urine Bilirubin Urine Urobilinogen Ur Leukocyte Esterase Urine RBC Urine WBC Ur Epithelial Cells Urine Bacteria Alcohol, Quantitative 10/20/16 10/20/16 10/20/16 01:58 02:59 03:58 WBC RBC Hgb Hct MCV MCH MCHC RDW Plt Count MPV Sodium Potassium Chloride Carbon Dioxide Anion Gap BUN Creatinine Est GFR ( Amer) Est GFR (Non-Af Amer) POC Glucose (mg/dL) 152 H 135 H 156 H Random Glucose Calcium Phosphorus Magnesium Urine Color Urine Appearance Urine pH Ur Specific [place] Urine Protein Urine Glucose (UA) Urine Ketones Urine Blood Urine Nitrate Urine Bilirubin Urine Urobilinogen Ur Leukocyte Esterase Urine RBC Urine WBC Ur Epithelial Cells Urine Bacteria Alcohol, Quantitative 10/20/16 10/20/16 10/20/16 04:54 05:30 06:07 WBC 6.0 D RBC 4.06 Hgb 12.5 L Hct 34.6 L MCV 85.2 MCH 30.8 MCHC 36.1 RDW 13.3 Plt Count 281 MPV 8.3 Sodium 135 Potassium 3.4 L Chloride 109 Carbon Dioxide 21 Anion Gap 8 L BUN 5 L Creatinine 0.7 Est GFR ( Amer) > 60 Est GFR (Non-Af Amer) > 60 POC Glucose (mg/dL) 156 H 157 H Random Glucose 151 H Calcium 7.6 L Phosphorus 1.6 L Magnesium 2.0 Urine Color Urine Appearance Urine pH Ur Specific [place] Urine Protein Urine Glucose (UA) Urine Ketones Urine Blood Urine Nitrate Urine Bilirubin Urine Urobilinogen Ur Leukocyte Esterase Urine RBC Urine WBC Ur Epithelial Cells Urine Bacteria Alcohol, Quantitative 10/20/16 10/20/16 07:00 08:07 WBC RBC Hgb Hct MCV MCH MCHC RDW Plt Count MPV Sodium Potassium Chloride Carbon Dioxide Anion Gap BUN Creatinine Est GFR ( Amer) Est GFR (Non-Af Amer) POC Glucose (mg/dL) 182 H 219 H Random Glucose Calcium Phosphorus Magnesium Urine Color Urine Appearance Urine pH Ur Specific [place] Urine Protein Urine Glucose (UA) Urine Ketones Urine Blood Urine Nitrate Urine Bilirubin Urine Urobilinogen Ur Leukocyte Esterase Urine RBC Urine WBC Ur Epithelial Cells Urine Bacteria Alcohol, Quantitative Attending/Attestation - Attestation I have personally seen and examined this patient.: Yes I have fully participated in the care of the patient.: Yes I have reviewed all pertinent clinical information: Yes Notes (Text): I have seen and examined the patient with the resident at the bedside. This is 36 year old male with history of uncontrolled DM, PUD, diabetic neuropathy, alcohol abuse, occasional smoker who got admitted for DKA, intractable nausea, vomiting, diarrhea, dehydration and is going thru alcohol withdrawal. Denies any abdominal pain or tenderness. Patient is hemodynamically stable. He will be admitted in ICU for insulin drip. F/U hba1c. Will make patient npo. Start Ativan , zofran, protonix, folic acid, thiamine, MVI. Stool studies ordered. Will consult GI. Upon discharge, patient will follow up with Dr Juárez. Dr Robert Lloyd
[2016-10-19 15:35] LABS: MAGNESIUM 1.9 mg/dL (1.7-2.2); PHOSPHOROUS 4.3 mg/dL (2.5-4.5)
[2016-10-19] MEDS ORDERED: Pneumococcal 23-Valent Vaccine IM ONE (16:26)
[2016-10-19 16:51] LABS: PH,URINE 5.5 (4.7-8.0); URINE BILIRUBIN NEGATIVE (NEGATIVE); URINE BLOOD SMALL (NEGATIVE); URINE GLUCOSE (UA) >=1000 mg/dL (NEGATIVE); URINE KETONE >=80 mg/dL (NEGATIVE); URINE LEUKOCYTE ESTERASE NEGATIVE Leu/uL (NEGATIVE); URINE PROTEIN 30 mg/dL (<30 mg/dL); URINE UROBILINOGEN 0.2 E.U./dL (<1 E.U./dL)
[2016-10-19 16:55] LABS: URINE APPEARANCE CLEAR (CLEAR); URINE COLOR YELLOW (YELLOW)
[2016-10-19 17:05] LABS: HEMATOCRIT 36.8 % (42.0-52.0); MEAN CELL VOLUME 88.5 fL (80.0-105.0); MEAN CORPUSCULAR HEMOGLOBIN 30.8 pg (25.0-35.0); MEAN CORPUSCULAR HGB CONC 34.8 g/dl (31.0-37.0); MEAN PLATELET VOLUME 8.6 fl (7.0-11.0); RED CELL DISTRIBUTION WIDTH 13.4 % (11.5-14.5); WHITE BLOOD COUNT 12.2 10^3/ul (4.5-11.0)
[2016-10-19 17:15] LABS: BLOOD UREA NITROGEN 8 mg/dL (7-21); CALCIUM 7.8 mg/dL (8.4-10.5); CARBON DIOXIDE 8 mmol/L (21-33); CHLORIDE 110 mmol/L (98-107); GFR AFRICAN-AMERICAN > 60; GLUCOSE,RANDOM 241 mg/dL (70-110); MAGNESIUM 2.1 mg/dL (1.7-2.2); PHOSPHOROUS 2.2 mg/dL (2.5-4.5); POTASSIUM 4.1 mmol/L (3.6-5.0); SODIUM 139 mmol/L (132-148)
[2016-10-19 17:29] LABS: URINE BACTERIA FEW (NEG); URINE WBC 0 - 2 /hpf (0-6)
[2016-10-19] MEDS: Dextrose 5%/0.45% NS 1,000 ML IV SCH (18:23)
[2016-10-20 00:21] LABS: HEMATOCRIT 33.4 % (42.0-52.0); MEAN CELL VOLUME 85.6 fL (80.0-105.0); MEAN CORPUSCULAR HEMOGLOBIN 30.8 pg (25.0-35.0); MEAN CORPUSCULAR HGB CONC 35.9 g/dl (31.0-37.0); MEAN PLATELET VOLUME 7.9 fl (7.0-11.0); RED CELL DISTRIBUTION WIDTH 13.2 % (11.5-14.5); WHITE BLOOD COUNT 7.3 10^3/ul (4.5-11.0)
[2016-10-20 00:30] LABS: BLOOD UREA NITROGEN 6 mg/dL (7-21); CALCIUM 7.7 mg/dL (8.4-10.5); CARBON DIOXIDE 21 mmol/L (21-33); CHLORIDE 111 mmol/L (95-110); GFR AFRICAN-AMERICAN > 60; GLUCOSE,RANDOM 151 mg/dL (70-110); PHOSPHOROUS 1.6 mg/dL (2.5-4.5); POTASSIUM 3.6 mmol/L (3.6-5.0); SODIUM 139 mmol/L (132-148)
[2016-10-20] MEDS: Dextrose 5%/0.45% NS 1,000 ML IV SCH ×2 (01:15→07:38)
[2016-10-20] MEDS ORDERED: Alum-Mag Hydrox-Simethicone Susp (30 mL) PO ONE (03:25)
[2016-10-20 06:07] LABS: HEMATOCRIT 34.6 % (42.0-52.0); MEAN CELL VOLUME 85.2 fL (80.0-105.0); MEAN CORPUSCULAR HEMOGLOBIN 30.8 pg (25.0-35.0); MEAN CORPUSCULAR HGB CONC 36.1 g/dl (31.0-37.0); MEAN PLATELET VOLUME 8.3 fl (7.0-11.0); RED CELL DISTRIBUTION WIDTH 13.3 % (11.5-14.5)
[2016-10-20 06:31] LABS: BLOOD UREA NITROGEN 5 mg/dL (7-21); CALCIUM 7.6 mg/dL (8.4-10.5); CARBON DIOXIDE 21 mmol/L (21-33); CHLORIDE 109 mmol/L (95-110); GFR AFRICAN-AMERICAN > 60; GLUCOSE,RANDOM 151 mg/dL (70-110); PHOSPHOROUS 1.6 mg/dL (2.5-4.5); POTASSIUM 3.4 mmol/L (3.6-5.0); SODIUM 135 mmol/L (132-148)
[2016-10-20] MEDS ORDERED: Potassium Phosphate 15 MMOLE in Sodium Chloride 0.9% 250 ML IVPB ONE (07:10)
[2016-10-20] MEDS ORDERED: Potassium Chloride 10 mEq 100 ML IVPB ONE (07:10)
[2016-10-20] MEDS ORDERED: Insulin Detemir 100 units/ml Vial (Levemir) SC ONE (07:15)
[2016-10-20] MEDS: Insulin Reg-MEDIUM-Coverage SC SCH ×4 (07:42→21:54)
[2016-10-20] MEDS: Thiamine 100 mg/ml Inj IM SCH (09:03)
--- NOTE | 2016-10-20 09:12 | CP.CCUPN ---
CCU Subjective - Physician Review Events Since Last Encounter (Free Text): 10/20/16 09:07 36yo male pt presented with multiple episodes of N\V\D after ETOH binge. Pt seen and examined at bedside. No repeat episodes of vomiting or BM overnight. No bleeding overnight. Pt remains hemodynamically stable and comfortable on room air in [facility]. CCU Objective - Vital Signs / Intake & Output Intake and Output (Last 8hrs): Intake & Output 10/19/16 10/20/16 10/20/16 22:59 06:59 14:59 Intake Total 4600 Output Total 750 Balance 3850 Weight 155 lb Intake: Other 4600 Output: Urine 750 Urine, Voided 750 Other: Voiding Method Urinal Urinal - Physical Exam Head: Positive for: Atraumatic, Normocephalic Conjunctiva: Positive for: Normal Mouth: Positive for: Moist Mucous Membranes Neck: Positive for: Normal Range of Motion Respiratory/Chest: Positive for: Clear to Auscultation, Good Air Exchange. Negative for: Respiratory Distress, Accessory Muscle Use Cardiovascular: Positive for: Regular Rate and Rhythm, Normal S1, S2. Negative for: Murmurs Abdomen: Positive for: Normal Bowel Sounds. Negative for: Tenderness, Distention, Peritoneal Signs Lower Extremity: Positive for: Normal Inspection. Negative for: Edema, Erythema Neurological: Positive for: GCS=15, CN II-XII Intact, Speech Normal Skin: Positive for: Warm, Dry, Normal Color. Negative for: Rashes Psychiatric: Positive for: Alert, Oriented x 3, Normal Insight, Normal Concentration - Medications Active Medications: Active Medications Generic Name Dose Route Start Last Admin Trade Name Freq PRN Reason Stop Dose Admin Folic Acid 1 mg 10/20/16 10:00 Folic Acid IVP DAILY PJ Dextrose/Sodium Chloride 1,000 mls @ 150 mls/hr 10/19/16 18:30 10/20/16 07:38 Dextrose 5%/0.45% Ns 1000 Ml IV 150 mls/hr .[id number] PJ Administration Potassium Phosphate 15 mmole/ 255 mls @ 42.5 mls/hr 10/20/16 07:10 10/20/16 08: 10 Sodium Chloride IVPB 10/20/16 13:09 42.5 mls/hr ONCE ONE Administration Calcium Gluconate 1,000 mg/ 110 mls @ 110 mls/hr 10/20/16 08:00 Sodium Chloride IVPB 10/20/16 09:59 Q1H PJ Insulin Human Regular 0 units 10/20/16 07:30 10/20/16 07:42 Humulin R Med SC 1 units ACHS PJ Administration Protocol Lorazepam 2 mg 10/19/16 15:18 Ativan IVP Q2H PRN Symptoms of alcohol withdrawl Protocol Ondansetron HCl 4 mg 10/19/16 14:40 10/19/16 21:55 Zofran Inj IVP 4 mg Q4H PRN Administration Nausea/Vomiting Pantoprazole Sodium 40 mg 10/19/16 20:00 10/20/16 08:10 Protonix Inj IVP 40 mg Q12H PJ Administration Thiamine HCl 100 mg 10/20/16 10:00 Vitamin B1 Inj IM DAILY PJ - Patient Studies Lab Studies: Lab Studies 10/20/16 10/20/16 10/20/16 Range/Units 08:07 07:00 06:07 WBC (4.5-11.0) 10^3/ul RBC (3.5-6.1) 10^6/uL Hgb (14.0-18.0) gm/dL Hct (42.0-52.0) % MCV (80.0-105.0) fL MCH (25.0-35.0) pg MCHC (31.0-37.0) g/dl RDW (11.5-14.5) % Plt Count (120.0-450.0) 10^3/uL MPV (7.0-11.0) fl Sodium (132-148) mmol/L Potassium (3.6-5.0) mmol/L Chloride (95-110) mmol/L Carbon Dioxide (21-33) mmol/L Anion Gap (10-20) BUN (7-21) mg/dL Creatinine (0.5-1.4) mg/dL Est GFR ( Amer) Est GFR (Non-Af Amer) POC Glucose (mg/dL) 219 H 182 H 157 H (65-110) mg/dL Random Glucose (70-110) mg/dL Calcium (8.4-10.5) mg/dL Phosphorus (2.5-4.5) mg/dL Magnesium (1.7-2.2) mg/dL Urine Color (YELLOW) Urine Appearance (CLEAR) Urine pH (4.7-8.0) Ur Specific [place] (1.005-1.035) Urine Protein (<30 mg/dL) mg/dL Urine Glucose (UA) (NEGATIVE) mg/dL Urine Ketones (NEGATIVE) mg/dL Urine Blood (NEGATIVE) Urine Nitrate (NEGATIVE) Urine Bilirubin (NEGATIVE) Urine Urobilinogen (<1 E.U./dL) E.U./dL Ur Leukocyte Esterase (NEGATIVE) Migel/uL Urine RBC (0-2) /hpf Urine WBC (0-6) /hpf Ur Epithelial Cells (0-5) /hpf Urine Bacteria (NEG) Alcohol, Quantitative (0-10) mg/dL 10/20/16 10/20/16 10/20/16 Range/Units 05:30 04:54 03:58 WBC 6.0 D (4.5-11.0) 10^3/ul RBC 4.06 (3.5-6.1) 10^6/uL Hgb 12.5 L (14.0-18.0) gm/dL Hct 34.6 L (42.0-52.0) % MCV 85.2 (80.0-105.0) fL MCH 30.8 (25.0-35.0) pg MCHC 36.1 (31.0-37.0) g/dl RDW 13.3 (11.5-14.5) % Plt Count 281 (120.0-450.0) 10^3/uL MPV 8.3 (7.0-11.0) fl Sodium 135 (132-148) mmol/L Potassium 3.4 L (3.6-5.0) mmol/L Chloride 109 (95-110) mmol/L Carbon Dioxide 21 (21-33) mmol/L Anion Gap 8 L (10-20) BUN 5 L (7-21) mg/dL Creatinine 0.7 (0.5-1.4) mg/dL Est GFR ( Amer) > 60 Est GFR (Non-Af Amer) > 60 POC Glucose (mg/dL) 156 H 156 H (65-110) mg/dL Random Glucose 151 H (70-110) mg/dL Calcium 7.6 L (8.4-10.5) mg/dL Phosphorus 1.6 L (2.5-4.5) mg/dL Magnesium 2.0 (1.7-2.2) mg/dL Urine Color (YELLOW) Urine Appearance (CLEAR) Urine pH (4.7-8.0) Ur Specific [place] (1.005-1.035) Urine Protein (<30 mg/dL) mg/dL Urine Glucose (UA) (NEGATIVE) mg/dL Urine Ketones (NEGATIVE) mg/dL Urine Blood (NEGATIVE) Urine Nitrate (NEGATIVE) Urine Bilirubin (NEGATIVE) Urine Urobilinogen (<1 E.U./dL) E.U./dL Ur Leukocyte Esterase (NEGATIVE) Migel/uL Urine RBC (0-2) /hpf Urine WBC (0-6) /hpf Ur Epithelial Cells (0-5) /hpf Urine Bacteria (NEG) Alcohol, Quantitative (0-10) mg/dL 10/20/16 10/20/16 10/20/16 Range/Units 02:59 01:58 00:58 WBC (4.5-11.0) 10^3/ul RBC (3.5-6.1) 10^6/uL Hgb (14.0-18.0) gm/dL Hct (42.0-52.0) % MCV (80.0-105.0) fL MCH (25.0-35.0) pg MCHC (31.0-37.0) g/dl RDW (11.5-14.5) % Plt Count (120.0-450.0) 10^3/uL MPV (7.0-11.0) fl Sodium (132-148) mmol/L Potassium (3.6-5.0) mmol/L Chloride (95-110) mmol/L Carbon Dioxide (21-33) mmol/L Anion Gap (10-20) BUN (7-21) mg/dL Creatinine (0.5-1.4) mg/dL Est GFR ( Amer) Est GFR (Non-Af Amer) POC Glucose (mg/dL) 135 H 152 H 155 H (65-110) mg/dL Random Glucose (70-110) mg/dL Calcium (8.4-10.5) mg/dL Phosphorus (2.5-4.5) mg/dL Magnesium (1.7-2.2) mg/dL Urine Color (YELLOW) Urine Appearance (CLEAR) Urine pH (4.7-8.0) Ur Specific [place] (1.005-1.035) Urine Protein (<30 mg/dL) mg/dL Urine Glucose (UA) (NEGATIVE) mg/dL Urine Ketones (NEGATIVE) mg/dL Urine Blood (NEGATIVE) Urine Nitrate (NEGATIVE) Urine Bilirubin (NEGATIVE) Urine Urobilinogen (<1 E.U./dL) E.U./dL Ur Leukocyte Esterase (NEGATIVE) Migel/uL Urine RBC (0-2) /hpf Urine WBC (0-6) /hpf Ur Epithelial Cells (0-5) /hpf Urine Bacteria (NEG) Alcohol, Quantitative (0-10) mg/dL 10/20/16 10/19/16 10/19/16 Range/Units 00:05 23:13 21:57 WBC (4.5-11.0) 10^3/ul RBC (3.5-6.1) 10^6/uL Hgb (14.0-18.0) gm/dL Hct (42.0-52.0) % MCV (80.0-105.0) fL MCH (25.0-35.0) pg MCHC (31.0-37.0) g/dl RDW (11.5-14.5) % Plt Count (120.0-450.0) 10^3/uL MPV (7.0-11.0) fl Sodium (132-148) mmol/L Potassium (3.6-5.0) mmol/L Chloride (95-110) mmol/L Carbon Dioxide (21-33) mmol/L Anion Gap (10-20) BUN (7-21) mg/dL Creatinine (0.5-1.4) mg/dL Est GFR ( Amer) Est GFR (Non-Af Amer) POC Glucose (mg/dL) 144 H 153 H 146 H (65-110) mg/dL Random Glucose (70-110) mg/dL Calcium (8.4-10.5) mg/dL Phosphorus (2.5-4.5) mg/dL Magnesium (1.7-2.2) mg/dL Urine Color (YELLOW) Urine Appearance (CLEAR) Urine pH (4.7-8.0) Ur Specific [place] (1.005-1.035) Urine Protein (<30 mg/dL) mg/dL Urine Glucose (UA) (NEGATIVE) mg/dL Urine Ketones (NEGATIVE) mg/dL Urine Blood (NEGATIVE) Urine Nitrate (NEGATIVE) Urine Bilirubin (NEGATIVE) Urine Urobilinogen (<1 E.U./dL) E.U./dL Ur Leukocyte Esterase (NEGATIVE) Migel/uL Urine RBC (0-2) /hpf Urine WBC (0-6) /hpf Ur Epithelial Cells (0-5) /hpf Urine Bacteria (NEG) Alcohol, Quantitative (0-10) mg/dL 10/19/16 10/19/16 10/19/16 Range/Units 20:55 19:52 18:09 WBC (4.5-11.0) 10^3/ul RBC (3.5-6.1) 10^6/uL Hgb (14.0-18.0) gm/dL Hct (42.0-52.0) % MCV (80.0-105.0) fL MCH (25.0-35.0) pg MCHC (31.0-37.0) g/dl RDW (11.5-14.5) % Plt Count (120.0-450.0) 10^3/uL MPV (7.0-11.0) fl Sodium (132-148) mmol/L Potassium (3.6-5.0) mmol/L Chloride (95-110) mmol/L Carbon Dioxide (21-33) mmol/L Anion Gap (10-20) BUN (7-21) mg/dL Creatinine (0.5-1.4) mg/dL Est GFR ( Amer) Est GFR (Non-Af Amer) POC Glucose (mg/dL) 138 H 160 H 162 H (65-110) mg/dL Random Glucose (70-110) mg/dL Calcium (8.4-10.5) mg/dL Phosphorus (2.5-4.5) mg/dL Magnesium (1.7-2.2) mg/dL Urine Color (YELLOW) Urine Appearance (CLEAR) Urine pH (4.7-8.0) Ur Specific [place] (1.005-1.035) Urine Protein (<30 mg/dL) mg/dL Urine Glucose (UA) (NEGATIVE) mg/dL Urine Ketones (NEGATIVE) mg/dL Urine Blood (NEGATIVE) Urine Nitrate (NEGATIVE) Urine Bilirubin (NEGATIVE) Urine Urobilinogen (<1 E.U./dL) E.U./dL Ur Leukocyte Esterase (NEGATIVE) Migel/uL Urine RBC (0-2) /hpf Urine WBC (0-6) /hpf Ur Epithelial Cells (0-5) /hpf Urine Bacteria (NEG) Alcohol, Quantitative (0-10) mg/dL 10/19/16 10/19/16 10/19/16 Range/Units 17:24 16:55 16:08 WBC 12.2 H (4.5-11.0) 10^3/ul RBC 4.16 (3.5-6.1) 10^6/uL Hgb 12.8 L (14.0-18.0) gm/dL Hct 36.8 L (42.0-52.0) % MCV 88.5 (80.0-105.0) fL MCH 30.8 (25.0-35.0) pg MCHC 34.8 (31.0-37.0) g/dl RDW 13.4 (11.5-14.5) % Plt Count 293 (120.0-450.0) 10^3/uL MPV 8.6 (7.0-11.0) fl Sodium 139 (132-148) mmol/L Potassium 4.1 (3.6-5.0) mmol/L Chloride 110 H (95-110) mmol/L Carbon Dioxide 8 L D (21-33) mmol/L Anion Gap 25 H (10-20) BUN 8 (7-21) mg/dL Creatinine 0.9 (0.5-1.4) mg/dL Est GFR ( Amer) > 60 Est GFR (Non-Af Amer) > 60 POC Glucose (mg/dL) 188 H 248 H (65-110) mg/dL Random Glucose 241 H (70-110) mg/dL Calcium 7.8 L (8.4-10.5) mg/dL Phosphorus 2.2 L (2.5-4.5) mg/dL Magnesium 2.1 (1.7-2.2) mg/dL Urine Color (YELLOW) Urine Appearance (CLEAR) Urine pH (4.7-8.0) Ur Specific [place] (1.005-1.035) Urine Protein (<30 mg/dL) mg/dL Urine Glucose (UA) (NEGATIVE) mg/dL Urine Ketones (NEGATIVE) mg/dL Urine Blood (NEGATIVE) Urine Nitrate (NEGATIVE) Urine Bilirubin (NEGATIVE) Urine Urobilinogen (<1 E.U./dL) E.U./dL Ur Leukocyte Esterase (NEGATIVE) Migel/uL Urine RBC (0-2) /hpf Urine WBC (0-6) /hpf Ur Epithelial Cells (0-5) /hpf Urine Bacteria (NEG) Alcohol, Quantitative (0-10) mg/dL 10/19/16 10/19/16 Range/Units 16:00 14:20 WBC (4.5-11.0) 10^3/ul RBC (3.5-6.1) 10^6/uL Hgb (14.0-18.0) gm/dL Hct (42.0-52.0) % MCV (80.0-105.0) fL MCH (25.0-35.0) pg MCHC (31.0-37.0) g/dl RDW (11.5-14.5) % Plt Count (120.0-450.0) 10^3/uL MPV (7.0-11.0) fl Sodium (132-148) mmol/L Potassium (3.6-5.0) mmol/L Chloride (95-110) mmol/L Carbon Dioxide (21-33) mmol/L Anion Gap (10-20) BUN (7-21) mg/dL Creatinine (0.5-1.4) mg/dL Est GFR ( Amer) Est GFR (Non-Af Amer) POC Glucose (mg/dL) (65-110) mg/dL Random Glucose (70-110) mg/dL Calcium (8.4-10.5) mg/dL Phosphorus 4.3 (2.5-4.5) mg/dL Magnesium 1.9 (1.7-2.2) mg/dL Urine Color Yellow (YELLOW) Urine Appearance Clear (CLEAR) Urine pH 5.5 (4.7-8.0) Ur Specific [place] 1.025 (1.005-1.035) Urine Protein 30 H (<30 mg/dL) mg/dL Urine Glucose (UA) >=1000 (NEGATIVE) mg/dL Urine Ketones >=80 (NEGATIVE) mg/dL Urine Blood Small H (NEGATIVE) Urine Nitrate Negative (NEGATIVE) Urine Bilirubin Negative (NEGATIVE) Urine Urobilinogen 0.2 (<1 E.U./dL) E.U./dL Ur Leukocyte Esterase Negative (NEGATIVE) Migel/uL Urine RBC 2 - 5 (0-2) /hpf Urine WBC 0 - 2 (0-6) /hpf Ur Epithelial Cells None (0-5) /hpf Urine Bacteria Few (NEG) Alcohol, Quantitative < 10 (0-10) mg/dL Laboratory Results - last 24 hr 10/19/16 10/19/16 10/19/16 14:20 16:00 16:08 WBC RBC Hgb Hct MCV MCH MCHC RDW Plt Count MPV Sodium Potassium Chloride Carbon Dioxide Anion Gap BUN Creatinine Est GFR ( Amer) Est GFR (Non-Af Amer) POC Glucose (mg/dL) 248 H Random Glucose Calcium Phosphorus 4.3 Magnesium 1.9 Urine Color Yellow Urine Appearance Clear Urine pH 5.5 Ur Specific [place] 1.025 Urine Protein 30 H Urine Glucose (UA) >=1000 Urine Ketones >=80 Urine Blood Small H Urine Nitrate Negative Urine Bilirubin Negative Urine Urobilinogen 0.2 Ur Leukocyte Esterase Negative Urine RBC 2 - 5 Urine WBC 0 - 2 Ur Epithelial Cells None Urine Bacteria Few Alcohol, Quantitative < 10 10/19/16 10/19/16 10/19/16 16:55 17:24 18:09 WBC 12.2 H RBC 4.16 Hgb 12.8 L Hct 36.8 L MCV 88.5 MCH 30.8 MCHC 34.8 RDW 13.4 Plt Count 293 MPV 8.6 Sodium 139 Potassium 4.1 Chloride 110 H Carbon Dioxide 8 L D Anion Gap 25 H BUN 8 Creatinine 0.9 Est GFR ( Amer) > 60 Est GFR (Non-Af Amer) > 60 POC Glucose (mg/dL) 188 H 162 H Random Glucose 241 H Calcium 7.8 L Phosphorus 2.2 L Magnesium 2.1 Urine Color Urine Appearance Urine pH Ur Specific [place] Urine Protein Urine Glucose (UA) Urine Ketones Urine Blood Urine Nitrate Urine Bilirubin Urine Urobilinogen Ur Leukocyte Esterase Urine RBC Urine WBC Ur Epithelial Cells Urine Bacteria Alcohol, Quantitative 10/19/16 10/19/16 10/19/16 19:52 20:55 21:57 WBC RBC Hgb Hct MCV MCH MCHC RDW Plt Count MPV Sodium Potassium Chloride Carbon Dioxide Anion Gap BUN Creatinine Est GFR ( Amer) Est GFR (Non-Af Amer) POC Glucose (mg/dL) 160 H 138 H 146 H Random Glucose Calcium Phosphorus Magnesium Urine Color Urine Appearance Urine pH Ur Specific [place] Urine Protein Urine Glucose (UA) Urine Ketones Urine Blood Urine Nitrate Urine Bilirubin Urine Urobilinogen Ur Leukocyte Esterase Urine RBC Urine WBC Ur Epithelial Cells Urine Bacteria Alcohol, Quantitative 10/19/16 10/20/16 10/20/16 23:13 00:05 00:58 WBC RBC Hgb Hct MCV MCH MCHC RDW Plt Count MPV Sodium Potassium Chloride Carbon Dioxide Anion Gap BUN Creatinine Est GFR ( Amer) Est GFR (Non-Af Amer) POC Glucose (mg/dL) 153 H 144 H 155 H Random Glucose Calcium Phosphorus Magnesium Urine Color Urine Appearance Urine pH Ur Specific [place] Urine Protein Urine Glucose (UA) Urine Ketones Urine Blood Urine Nitrate Urine Bilirubin Urine Urobilinogen Ur Leukocyte Esterase Urine RBC Urine WBC Ur Epithelial Cells Urine Bacteria Alcohol, Quantitative 10/20/16 10/20/16 10/20/16 01:58 02:59 03:58 WBC RBC Hgb Hct MCV MCH MCHC RDW Plt Count MPV Sodium Potassium Chloride Carbon Dioxide Anion Gap BUN Creatinine Est GFR ( Amer) Est GFR (Non-Af Amer) POC Glucose (mg/dL) 152 H 135 H 156 H Random Glucose Calcium Phosphorus Magnesium Urine Color Urine Appearance Urine pH Ur Specific [place] Urine Protein Urine Glucose (UA) Urine Ketones Urine Blood Urine Nitrate Urine Bilirubin Urine Urobilinogen Ur Leukocyte Esterase Urine RBC Urine WBC Ur Epithelial Cells Urine Bacteria Alcohol, Quantitative 10/20/16 10/20/16 10/20/16 04:54 05:30 06:07 WBC 6.0 D RBC 4.06 Hgb 12.5 L Hct 34.6 L MCV 85.2 MCH 30.8 MCHC 36.1 RDW 13.3 Plt Count 281 MPV 8.3 Sodium 135 Potassium 3.4 L Chloride 109 Carbon Dioxide 21 Anion Gap 8 L BUN 5 L Creatinine 0.7 Est GFR ( Amer) > 60 Est GFR (Non-Af Amer) > 60 POC Glucose (mg/dL) 156 H 157 H Random Glucose 151 H Calcium 7.6 L Phosphorus 1.6 L Magnesium 2.0 Urine Color Urine Appearance Urine pH Ur Specific [place] Urine Protein Urine Glucose (UA) Urine Ketones Urine Blood Urine Nitrate Urine Bilirubin Urine Urobilinogen Ur Leukocyte Esterase Urine RBC Urine WBC Ur Epithelial Cells Urine Bacteria Alcohol, Quantitative 10/20/16 10/20/16 07:00 08:07 WBC RBC Hgb Hct MCV MCH MCHC RDW Plt Count MPV Sodium Potassium Chloride Carbon Dioxide Anion Gap BUN Creatinine Est GFR ( Amer) Est GFR (Non-Af Amer) POC Glucose (mg/dL) 182 H 219 H Random Glucose Calcium Phosphorus Magnesium Urine Color Urine Appearance Urine pH Ur Specific [place] Urine Protein Urine Glucose (UA) Urine Ketones Urine Blood Urine Nitrate Urine Bilirubin Urine Urobilinogen Ur Leukocyte Esterase Urine RBC Urine WBC Ur Epithelial Cells Urine Bacteria Alcohol, Quantitative Fingerstick Blood Sugar Results: 189 Review of Systems - Review of Systems Systems not reviewed;Unavailable: Acuity of Condition Critical Care Progress Note - Ventilator Checklist Head of Bed 30 Degrees: Yes PUD Prophalyxis: Yes DVT Prophylaxis: Yes - Nutrition Nutrition: Nutrition Category Date Time Status NPO Diet [DIET] Diets 10/19/16 Dinner Ordered Assessment/Plan - Assessment and Plan (Free Text) Plan: DKA \ ETOH abuse \ ro GIB \ -hemodynamic monitoring to maintain MAP>65; currently stable -o2 supplementation to maintain Spo2>90 Pao2>60; currently comfortable on room air -CXR reviewed , and shows no visible opacification -f\u Bun\Cr and U\o; off IVF this AM -d\c Insulin drip and continue lantus and ISS -BGM monitoring ACHS -Anion gap closed this AM -monitor and replace e-lites -advance PO diet as per GI team and continue aspiration precautions -PPI IV q12h -GI team eval -f\u serial H\H and monitor for bleeding -f\u HbA1c -consider endocrine eval as multiple episodes of DKA -thiamine , folic acid and MVI -no signs of ETOH withdrawal -consider psych eval for substance abuse -DVT prophylaxis DW nursing staff. Pt was also counselled regarding ETOH abuse CCM f\u time 35min
--- NOTE | 2016-10-20 09:40 | CARD ---
APPROVED REPORT EKG Measurement Heart [id number] <Conclusion> Sinus tachycardia Right bundle branch block NSSTW changes, new
--- NOTE | 2016-10-20 09:52 | CON ---
DATE: 10/20/2016 I examined the patient this morning. 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 The patient was seen on Friday in the Emergency Room and subsequently sent home. After sent home, after drinking substantial volume of alcohol, the patient started vomiting, subsequently, came in to the Emergency Room with an elevated blood sugar. There is no gross hematemesis other than coffee-ground emesis. There is no rectal bleeding as well. The patient was seen in the Emergency Room and treated with IV fluids, insulin, and transferred to the ICU. Apparently, the patient has had no hematemesis last night and no rectal bleeding. This morning, the patient denies any epigastric pain, no shortness of breath, no chest pain. PHYSICAL EXAMINATION: VITAL SIGNS: I reviewed this patient's vital signs. HEENT: dry mouth. HEART: Irregular rhythm. ABDOMEN: Significant for some very mild tenderness in the epigastric area, otherwise noncontributory. LABORATORY DATA: This patient was past 24 hours, which consists of stable H and H, white count. His INR is within normal limits. Chemistry is significant for sugars that are basically all over the place. Initially, yesterday afternoon at about 1:15, sugar was 505. Sugars have subsequently come down. I reviewed the H and P, progress note, as well as the Emergency Room physician' s documentation in [facility]. 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 Past medical history with multiple episodes of diabetic ketoacidosis, admitted with nausea and vomiting, probably secondary to elevated blood sugar, diabetic ketoacidosis. Coffee ground emesis secondary to multiple episodes of emesis he had at home after p.o. hydration. The patient did not notice any bright red blood or rectal bleeding. The situation is most likely secondary to an esophageal mucosal tear secondary to recurrent vomiting. Currently, the patient is not nauseous. At the current time point, I do not see an urgent need for upper endoscopy in this particular patient. Review of this patient's orders indicates the patient is currently on D5-half at 150. He is currently receiving proton pump inhibitor twice daily. He is on Zofran, which appears to be adequate. He needs vigilant blood sugar evaluations throughout the day. Chance Feliciano DO, PhD cc: [id number] TT: 10/20/2016 09:51:33 Confirmation # [id number] Dictation # [id number]
[2016-10-20] MEDS ORDERED: INSULIN ASPART RECOMBINANT SC SCH (11:30)
--- NOTE | 2016-10-20 11:50 | CP.PCM.PN ---
<Gracy Schmitt - Last Filed: 10/20/16 11:50> Subjective - Date & Time of Evaluation Date of Evaluation: 10/20/16 Time of Evaluation: 11:48 - Subjective Subjective: HOSPITALIST PROGRESS NOTE Patient is seen and examined at bedside. Patient was witched from Insulin drip to SC insulin overnight. Patient is a&o x3. He denies having any abd pain, N/V /D/C. Patient is resting comfortably. Denies having any tremors, hallucinations or diaphoresis. Objective - Vital Signs/Intake and Output Vital Signs (last 24 hours): Temp Pulse Resp BP Pulse Ox 98 F 83 13 125/77 100 10/20/16 11:29 10/20/16 11:00 10/20/16 10:33 10/20/16 10:00 10/20/16 10:33 - Medications Medications: Current Medications Folic Acid (Folic Acid) 1 mg IVP DAILY [facility] Last Admin: 10/20/16 09:01 Dose: 1 mg Potassium Phosphate 15 mmole/ (Sodium Chloride) 255 mls @ 42.5 mls/hr IVPB ONCE ONE Stop: 10/20/16 13:09 Last Admin: 10/20/16 08:10 Dose: 42.5 mls/hr Insulin Human Regular (Humulin R Med) 0 units SC ACHS [facility] PRN Reason: Protocol Last Admin: 10/20/16 07:42 Dose: 1 units Lorazepam (Ativan) 2 mg IVP Q2H PRN; Protocol PRN Reason: Symptoms of alcohol withdrawl Non-Formulary Medication (Insulin Aspart, Recombinant [Novolog]) 7 unit SC ACTID [facility] Ondansetron HCl (Zofran Inj) 4 mg IVP Q4H PRN PRN Reason: Nausea/Vomiting Last Admin: 10/19/16 21:55 Dose: 4 mg Pantoprazole Sodium (Protonix Inj) 40 mg IVP Q12H [facility] Last Admin: 10/20/16 08:10 Dose: 40 mg Thiamine HCl (Vitamin B1 Inj) 100 mg IM DAILY [facility] Last Admin: 10/20/16 09:03 Dose: 100 mg - Labs Labs: 10/20/16 05:30 10/20/16 05:30 PT 11.6 Seconds (9.9-11.8) 10/19/16 12:20 INR 1.07 (0.93-1.08) 10/19/16 12:20 APTT 26.0 Seconds (23.7-30.8) 10/19/16 12:20 - Constitutional Appears: Non-toxic, No Acute Distress - ENT Exam ENT Exam: Mucous Membranes Moist - Respiratory Exam Respiratory Exam: Clear to Ausculation Bilateral. absent: Rales, Rhonchi, Wheezes - Cardiovascular Exam Cardiovascular Exam: REGULAR RHYTHM, +S1, +S2. absent: Gallop, Rubs, Murmur - GI/Abdominal Exam GI & Abdominal Exam: Soft, Normal Bowel Sounds. absent: Distended, Firm, Guarding, Rigid, Tenderness - Extremities Exam Extremities Exam: absent: Pedal Edema, Tenderness - Neurological Exam Neurological Exam: Alert, Awake, Oriented x3 - Psychiatric Exam Psychiatric exam: Normal Affect, Normal Mood - Skin Skin Exam: Dry, Intact, Normal Color, Warm Assessment and Plan - Assessment and Plan (Free Text) Assessment: 36 yo M w/PMHx of uncontrolled DM and PUD presents with guaic positive vomit, 2 day history of vomiting over 15 times, and 10 episodes of diarrhea after ingesting over 20 servings of etoh. Anion gap today is 8, Bicarb is 21. Calcium is 3.4. 1. Diabeteic Keto acidosis Anion gap is normal, bicarb is >15, finger sticks are <200 Patient is started on home insulin Novolog 7 units HS Will continue finger sticks ACHS ISS Medium dose Clear liquid diet Zofran IV Protonix IV 2. ETOH history ETOH level is <10 CIWA protocol Ativan 2q2 PRN Folate, Thiamine and multivitamin PO. If not tolerating PO, will switch over to banana bag IV fluids 3.GI bleed Guiac positive vomitus GI consulted, help appreciated stool guiac ordered Stable h/h Protonix 40 IV q12 4. Prophylaxis SCDs Discussed with attending Dr. Lloyd <Robert Lloyd - Last Filed: 10/20/16 13:58> Objective - Vital Signs/Intake and Output Vital Signs (last 24 hours): Temp Pulse Resp BP Pulse Ox 98 F 83 13 125/77 100 10/20/16 11:29 10/20/16 11:00 10/20/16 10:33 10/20/16 10:00 10/20/16 10:33 - Medications Medications: Current Medications Folic Acid (Folic Acid) 1 mg IVP DAILY [facility] Last Admin: 10/20/16 09:01 Dose: 1 mg Potassium Phosphate 15 mmole/ (Sodium Chloride) 255 mls @ 42.5 mls/hr IVPB ONCE ONE Stop: 10/20/16 13:09 Last Admin: 10/20/16 08:10 Dose: 42.5 mls/hr Insulin Human Regular (Humulin R Med) 0 units SC ACHS [facility] PRN Reason: Protocol Last Admin: 10/20/16 11:52 Dose: Not Given Lorazepam (Ativan) 2 mg IVP Q2H PRN; Protocol PRN Reason: Symptoms of alcohol withdrawl Non-Formulary Medication (Insulin Aspart, Recombinant [Novolog]) 7 unit SC ACTID [facility] Last Admin: 10/20/16 12:29 Dose: Not Given Ondansetron HCl (Zofran Inj) 4 mg IVP Q4H PRN PRN Reason: Nausea/Vomiting Last Admin: 10/19/16 21:55 Dose: 4 mg Pantoprazole Sodium (Protonix Inj) 40 mg IVP Q12H [facility] Last Admin: 10/20/16 08:10 Dose: 40 mg Thiamine HCl (Vitamin B1 Inj) 100 mg IM DAILY [facility] Last Admin: 10/20/16 09:03 Dose: 100 mg - Labs Labs: 10/20/16 12:40 10/20/16 05:30 PT 11.6 Seconds (9.9-11.8) 10/19/16 12:20 INR 1.07 (0.93-1.08) 10/19/16 12:20 APTT 26.0 Seconds (23.7-30.8) 10/19/16 12:20 Attending/Attestation - Attestation I have personally seen and examined this patient.: Yes I have fully participated in the care of the patient.: Yes I have reviewed all pertinent clinical information, including history, physical exam and plan: Yes Notes (Text): I have seen and examined the patient with the resident at the bedside. This is 36 year old male with history of uncontrolled DM, PUD, diabetic neuropathy, alcohol abuse, occasional smoker who got admitted for DKA, intractable nausea, vomiting, diarrhea, dehydration and is going thru alcohol withdrawal. He was given insulin drip overnight. Gap is closed now. He is already switched to Sc insulin. Denies any nausea, vomiting, diarrhea, abdominal pain, tremors, diaphoresis, visual or auditory hallucinations or anxiety. Patient is hemodynamically stable. He will be transferred out of ICU today. Patient will be started on clear liquid diet. GI consult appreciated. HHb remained stable. There is no need for endoscopy at urgent basis. Most likley it was secondary to mucosal tear in setting of recurrent vomiting. F/U hba1c. Continue Ativan prn, zofran, protonix, folic acid, thiamine, MVI. Stool studies pending. Upon discharge, patient will follow up with Dr Darío Juárez. Dr Robert Lloyd
[2016-10-20 12:52] LABS: HEMATOCRIT 39.6 % (42.0-52.0); MEAN CORPUSCULAR HEMOGLOBIN 30.9 pg (25.0-35.0); MEAN CORPUSCULAR HGB CONC 36.4 g/dl (31.0-37.0); MEAN PLATELET VOLUME 8.6 fl (7.0-11.0); RED CELL DISTRIBUTION WIDTH 13.3 % (11.5-14.5); WHITE BLOOD COUNT 5.4 10^3/ul (4.5-11.0)
[2016-10-20 13:06] LABS: BLOOD UREA NITROGEN 4 mg/dL (7-21); CALCIUM 8.9 mg/dL (8.4-10.5); CARBON DIOXIDE 22 mmol/L (21-33); CHLORIDE 108 mmol/L (98-107); GFR AFRICAN-AMERICAN > 60; GLUCOSE,RANDOM 131 mg/dL (70-110); MAGNESIUM 2.1 mg/dL (1.7-2.2); PHOSPHOROUS 2.2 mg/dL (2.5-4.5); POTASSIUM 3.7 mmol/L (3.6-5.0); SODIUM 137 mmol/L (132-148)
[2016-10-20 16:57] LABS: HEMATOCRIT 38.1 % (42.0-52.0); MEAN CORPUSCULAR HEMOGLOBIN 30.8 pg (25.0-35.0); MEAN CORPUSCULAR HGB CONC 36.2 g/dl (31.0-37.0); MEAN PLATELET VOLUME 8.4 fl (7.0-11.0); RED CELL DISTRIBUTION WIDTH 13.3 % (11.5-14.5); WHITE BLOOD COUNT 4.5 10^3/ul (4.5-11.0)
[2016-10-20 17:12] LABS: BLOOD UREA NITROGEN 3 mg/dL (7-21); CALCIUM 8.7 mg/dL (8.4-10.5); CARBON DIOXIDE 22 mmol/L (21-33); CHLORIDE 107 mmol/L (95-110); GFR AFRICAN-AMERICAN > 60; GLUCOSE,RANDOM 110 mg/dL (70-110); POTASSIUM 3.6 mmol/L (3.6-5.0); SODIUM 136 mmol/L (132-148)
[2016-10-20] MEDS: Insulin Detemir 100 units/ml Vial (Levemir) SC SCH (17:43)
[2016-10-20] MEDS ORDERED: Insulin Detemir 100 units/ml Vial (Levemir) SC SCH (22:00)
--- NOTE | 2016-10-21 05:56 | PN ---
DATE: 10/21/2016 SUBJECTIVE: I saw the patient this morning. 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 The patient has not had any signs and symptoms of overt bleeding in the sense of melena, hematochezia, hematemesis, coffee-ground emesis, etc. Currently, he is handling his diet and has no abdominal pain. The examination today was not significant for abdominal pain. LABORATORY DATA: Review of blood sugars indicate stable H and H. Chemistry indicates sugars in the range of 200-82 yesterday. OVERALL ASSESSMENT: This is a 36-year-old male admitted with complaints of abdominal pain, nausea, vomiting secondary to diabetic ketoacidosis, which is currently under control. Self-limited coffee ground emesis, most likely secondary to multiple episodes of emesis resulting from his disease process. No need for endoscopic evaluation. H and H stable. The patient is clinically improved relative to day of admission. We will sign off today. Chance Feliciano DO, PhD cc: [phone] TT: 10/21/2016 05:55:14 Confirmation # [id number] Dictation # [id number] RAE
[2016-10-21] MEDS ORDERED: Pantoprazole 40 mg EC Tab PO SCH (07:30)
[2016-10-21] MEDS: Insulin Reg-MEDIUM-Coverage SC SCH (08:06)
[2016-10-21 08:28] VITALS: BP 108/73; PULSE 87; RESP 18; TEMP 98.3
[2016-10-21] MEDS: Thiamine 100 mg/ml Inj IM SCH (09:26)
[2016-10-21] MEDS: Insulin Detemir 100 units/ml Vial (Levemir) SC SCH (09:26)
--- NOTE | 2016-10-21 12:13 | CP.PCM.DIS ---
<Shannan Rosenbaum - Last Filed: 10/21/16 20:27> Provider - Provider Date of Admission: 10/19/16 14:14 Attending physician: Robert Lloyd MD Primary care physician: NO PRIMARY CARE PROVIDER Time Spent in preparation of Discharge (in minutes): 30 Diagnosis - Discharge Diagnosis (1) Diabetic ketoacidosis Status: c (2) GI bleed Status: c (3) Nausea vomiting and diarrhea Status: c (4) Alcohol abuse Status: h Hospital Course - Lab Results Lab Results: Micro Results 10/19/16 16:00 Nose MRSA Culture (Admit) - Final MRSA NOT DETECTED 10/19/16 16:55 Blood Blood Culture - Preliminary NO GROWTH AFTER 24 HOURS 10/19/16 15:22 Blood Blood Culture - Preliminary NO GROWTH AFTER 24 HOURS Most Recent Lab Values WBC 4.5 10^3/ul (4.5-11.0) 10/20/16 16:50 RBC 4.48 10^6/uL (3.5-6.1) 10/20/16 16:50 Hgb 13.8 gm/dL (14.0-18.0) L 10/20/16 16:50 Hct 38.1 % (42.0-52.0) L 10/20/16 16:50 MCV 85.0 fL (80.0-105.0) 10/20/16 16:50 MCH 30.8 pg (25.0-35.0) 10/20/16 16:50 MCHC 36.2 g/dl (31.0-37.0) 10/20/16 16:50 RDW 13.3 % (11.5-14.5) 10/20/16 16:50 Plt Count 312 10^3/uL (120.0-450.0) 10/20/16 16:50 MPV 8.4 fl (7.0-11.0) 10/20/16 16:50 Gran % 77.1 % (50.0-68.0) H 10/19/16 12:20 Lymph % (Auto) 17.0 % (22.0-35.0) L 10/19/16 12:20 [place] % (Auto) 4.9 % (1.0-6.0) 10/19/16 12:20 Eos % (Auto) 0.4 % (1.5-5.0) L 10/19/16 12:20 Baso % (Auto) 0.6 % (0.0-3.0) 10/19/16 12:20 Gran # 8.67 (1.4-6.5) H 10/19/16 12:20 Lymph # 1.9 (1.2-3.4) 10/19/16 12:20 [place] # 0.6 (0.1-0.6) 10/19/16 12:20 Eos # 0.0 (0.0-0.7) 10/19/16 12:20 Baso # 0.07 K/mm3 (0.0-2.0) 10/19/16 12:20 PT 11.6 Seconds (9.9-11.8) 10/19/16 12:20 INR 1.07 (0.93-1.08) 10/19/16 12:20 APTT 26.0 Seconds (23.7-30.8) 10/19/16 12:20 pO2 192 mm/Hg (30-55) H 10/19/16 14:05 VBG pH 7.03 (7.32-7.43) L* 10/19/16 14:05 VBG pCO2 12.0 (40-60) L* 10/19/16 14:05 VBG HCO3 3.2 mmol/l (21-28) L 10/19/16 14:05 VBG Total CO2 3.6 mmol.L (22-28) L 10/19/16 14:05 VBG O2 Sat (Calc) 98.2 % (40-65) H 10/19/16 14:05 VBG Base Excess -25.6 mmol/L (0.0-2.0) L 10/19/16 14:05 VBG Potassium 4.5 mmol/L (3.6-5.2) 10/19/16 14:05 Sodium 135.0 mmol/L (132-148) 10/19/16 14:05 Chloride 108.0 mmol/L (98-107) H 10/19/16 14:05 Glucose 511 mg/dl (75-110) H* D 10/19/16 14:05 Lactate 1.6 mmol/L (0.7-2.1) 10/19/16 14:05 FiO2 21.0 % 10/19/16 14:05 Sodium 136 mmol/L (132-148) 10/20/16 16:50 Potassium 3.6 mmol/L (3.6-5.0) 10/20/16 16:50 Chloride 107 mmol/L (95-110) 10/20/16 16:50 Carbon Dioxide 22 mmol/L (21-33) 10/20/16 16:50 Anion Gap 11 (10-20) 10/20/16 16:50 BUN 3 mg/dL (7-21) L 10/20/16 16:50 Creatinine 0.6 mg/dL (0.5-1.4) 10/20/16 16:50 Est GFR ( Amer) > 60 10/20/16 16:50 Est GFR (Non-Af Amer) > 60 10/20/16 16:50 POC Glucose (mg/dL) 82 mg/dL (65-110) 10/20/16 21:04 Random Glucose 110 mg/dL (70-110) 10/20/16 16:50 Hemoglobin A1c 12.9 % (4.2-6.5) H 10/19/16 14:20 Calcium 8.7 mg/dL (8.4-10.5) 10/20/16 16:50 Phosphorus 2.2 mg/dL (2.5-4.5) L 10/20/16 12:40 Magnesium 2.0 mg/dL (1.7-2.2) 10/20/16 16:50 Total Bilirubin 0.8 mg/dL (0.2-1.3) 10/19/16 13:14 AST 54 U/L (15-59) 10/19/16 13:14 ALT 89 U/L (7-56) H 10/19/16 13:14 Alkaline Phosphatase 119 U/L (38-133) 10/19/16 13:14 Total Protein 6.8 g/dL (5.8-8.3) 10/19/16 13:14 Albumin 3.7 g/dL (3.0-4.8) 10/19/16 13:14 Globulin 3.0 gm/dL 10/19/16 13:14 Albumin/Globulin Ratio 1.2 (1.1-1.8) 10/19/16 13:14 Lipase 63 U/L (23-300) 10/19/16 13:14 Procalcitonin 0.23 NG/ML (0.19-0.49) 10/19/16 14:00 Venous Blood Potassium 4.5 mmol/L (3.6-5.2) 10/19/16 14:05 Urine Color Yellow (YELLOW) 10/19/16 16:00 Urine Appearance Clear (CLEAR) 10/19/16 16:00 Urine pH 5.5 (4.7-8.0) 10/19/16 16:00 Ur Specific [place] 1.025 (1.005-1.035) 10/19/16 16:00 Urine Protein 30 mg/dL (<30 mg/dL) H 10/19/16 16:00 Urine Glucose (UA) >=1000 mg/dL (NEGATIVE) 10/19/16 16:00 Urine Ketones >=80 mg/dL (NEGATIVE) 10/19/16 16:00 Urine Blood Small (NEGATIVE) H 10/19/16 16:00 Urine Nitrate Negative (NEGATIVE) 10/19/16 16:00 Urine Bilirubin Negative (NEGATIVE) 10/19/16 16:00 Urine Urobilinogen 0.2 E.U./dL (<1 E.U./dL) 10/19/16 16:00 Ur Leukocyte Esterase Negative Migel/uL (NEGATIVE) 10/19/16 16:00 Urine RBC 2 - 5 /hpf (0-2) 10/19/16 16:00 Urine WBC 0 - 2 /hpf (0-6) 10/19/16 16:00 Ur Epithelial Cells None /hpf (0-5) 10/19/16 16:00 Urine Bacteria Few (NEG) 10/19/16 16:00 Alcohol, Quantitative < 10 mg/dL (0-10) 10/19/16 14:20 Blood Type B POSITIVE 10/19/16 12:50 Antibody Screen Negative 10/19/16 12:50 BBK History Checked Patient has bt 10/19/16 12:50 - Hospital Course Hospital Course: Patient is a 36M with PMH of uncontrolled DM and PUD who presented for multiple episodes of dark brown vomiting and diarrhea 2 days prior to admit after binge drinking over 20 servings of ETOH. Denies hematochezia or hematemesis. He came to the ED the day before and was treated with IV fluids and insulin but returned to the ED for worsening symptoms. Emesis tested positive for blood and he was admitted for GI bleed. Shortly after presentation patient's blood gluocose was >500 and he was found to be in diabetic ketoacidosis. GI was consulted, insulin drip started, CIWA protocol for ETOH withdrawal initiated and patient was admitted to telemetry floor. over the next 2 days, patiently improved clinically, with anion gap closing, metabolic acidosis resolving, and hgb remaining relatively stable over duration of hospital course. GI did not recommend EGD, as patient's hematemesis was self-limited. On hospital day 2 patient refused to give blood work to further evaluate and treat his hyperglyemia and DKA, stating that he felt fine and his bleeding stopped and he had other things to attend to outside the hospital. Patient was told that his hyperglycemia and ensuing metabolic and electrolyte imbalances were dire, even potentially life threatening. Explained that his departure without further evaluation and treatment could result in DKA, electrolyte imbalances, arrhythmias, stroke, re-hospitalization, and even . Patient said he understood, and signed out AMA. For full hospital course, refer to the patient's chart. Discharge Exam - Head Exam Head Exam: ATRAUMATIC, NORMOCEPHALIC - Eye Exam Eye Exam: Normal appearance. absent: Conjunctival injection, Scleral icterus - ENT Exam ENT Exam: Mucous Membranes Moist, Normal Oropharynx - Respiratory Exam Respiratory Exam: Clear to PA & Lateral. absent: Accessory Muscle Use, NORMAL BREATHING PATTERN - Cardiovascular Exam Cardiovascular Exam: RRR, +S1, +S2. absent: Systolic Murmur - GI/Abdominal Exam GI & Abdominal Exam: Soft. absent: Distended, Tenderness - Extremities Exam Extremities exam: pedal pulses present Additional comments: no calf tenderness or pedal edema - Neurological Exam Neurological exam: Alert, Oriented x3 - Psychiatric Exam Psychiatric exam: Normal Affect, Normal Mood - Skin Skin Exam: Dry, Intact, Normal Color, Warm Discharge Plan - Follow Up Plan Condition: CRITICAL Disposition: AGAINST MEDICAL ADVICE Referrals: PCP,YI [Primary Care Provider] - <Robert Lloyd - Last Filed: 10/30/16 15:01> Provider - Provider Date of Admission: 10/19/16 14:14 Attending physician: Robert Lloyd MD Primary care physician: NO PRIMARY CARE PROVIDER Hospital Course - Lab Results Lab Results: Micro Results 10/19/16 16:55 Blood Blood Culture - Final NO GROWTH AFTER 5 DAYS 10/19/16 16:55 Blood Gram Stain - Final TEST NOT PERFORMED 10/19/16 15:22 Blood Blood Culture - Final NO GROWTH AFTER 5 DAYS 10/19/16 15:22 Blood Gram Stain - Final TEST NOT PERFORMED 10/19/16 16:00 Nose MRSA Culture (Admit) - Final MRSA NOT DETECTED Most Recent Lab Values WBC 4.5 10^3/ul (4.5-11.0) 10/20/16 16:50 RBC 4.48 10^6/uL (3.5-6.1) 10/20/16 16:50 Hgb 13.8 gm/dL (14.0-18.0) L 10/20/16 16:50 Hct 38.1 % (42.0-52.0) L 10/20/16 16:50 MCV 85.0 fL (80.0-105.0) 10/20/16 16:50 MCH 30.8 pg (25.0-35.0) 10/20/16 16:50 MCHC 36.2 g/dl (31.0-37.0) 10/20/16 16:50 RDW 13.3 % (11.5-14.5) 10/20/16 16:50 Plt Count 312 10^3/uL (120.0-450.0) 10/20/16 16:50 MPV 8.4 fl (7.0-11.0) 10/20/16 16:50 Gran % 77.1 % (50.0-68.0) H 10/19/16 12:20 Lymph % (Auto) 17.0 % (22.0-35.0) L 10/19/16 12:20 [place] % (Auto) 4.9 % (1.0-6.0) 10/19/16 12:20 Eos % (Auto) 0.4 % (1.5-5.0) L 10/19/16 12:20 Baso % (Auto) 0.6 % (0.0-3.0) 10/19/16 12:20 Gran # 8.67 (1.4-6.5) H 10/19/16 12:20 Lymph # 1.9 (1.2-3.4) 10/19/16 12:20 [place] # 0.6 (0.1-0.6) 10/19/16 12:20 Eos # 0.0 (0.0-0.7) 10/19/16 12:20 Baso # 0.07 K/mm3 (0.0-2.0) 10/19/16 12:20 PT 11.6 Seconds (9.9-11.8) 10/19/16 12:20 INR 1.07 (0.93-1.08) 10/19/16 12:20 APTT 26.0 Seconds (23.7-30.8) 10/19/16 12:20 pO2 192 mm/Hg (30-55) H 10/19/16 14:05 VBG pH 7.03 (7.32-7.43) L* 10/19/16 14:05 VBG pCO2 12.0 (40-60) L* 10/19/16 14:05 VBG HCO3 3.2 mmol/l (21-28) L 10/19/16 14:05 VBG Total CO2 3.6 mmol.L (22-28) L 10/19/16 14:05 VBG O2 Sat (Calc) 98.2 % (40-65) H 10/19/16 14:05 VBG Base Excess -25.6 mmol/L (0.0-2.0) L 10/19/16 14:05 VBG Potassium 4.5 mmol/L (3.6-5.2) 10/19/16 14:05 Sodium 135.0 mmol/L (132-148) 10/19/16 14:05 Chloride 108.0 mmol/L (98-107) H 10/19/16 14:05 Glucose 511 mg/dl (75-110) H* D 10/19/16 14:05 Lactate 1.6 mmol/L (0.7-2.1) 10/19/16 14:05 FiO2 21.0 % 10/19/16 14:05 Sodium 136 mmol/L (132-148) 10/20/16 16:50 Potassium 3.6 mmol/L (3.6-5.0) 10/20/16 16:50 Chloride 107 mmol/L (95-110) 10/20/16 16:50 Carbon Dioxide 22 mmol/L (21-33) 10/20/16 16:50 Anion Gap 11 (10-20) 10/20/16 16:50 BUN 3 mg/dL (7-21) L 10/20/16 16:50 Creatinine 0.6 mg/dL (0.5-1.4) 10/20/16 16:50 Est GFR ( Amer) > 60 10/20/16 16:50 Est GFR (Non-Af Amer) > 60 10/20/16 16:50 POC Glucose (mg/dL) 222 mg/dL (65-110) H 10/21/16 07:28 Random Glucose 110 mg/dL (70-110) 10/20/16 16:50 Hemoglobin A1c 12.9 % (4.2-6.5) H 10/19/16 14:20 Calcium 8.7 mg/dL (8.4-10.5) 10/20/16 16:50 Phosphorus 2.2 mg/dL (2.5-4.5) L 10/20/16 12:40 Magnesium 2.0 mg/dL (1.7-2.2) 10/20/16 16:50 Total Bilirubin 0.8 mg/dL (0.2-1.3) 10/19/16 13:14 AST 54 U/L (15-59) 10/19/16 13:14 ALT 89 U/L (7-56) H 10/19/16 13:14 Alkaline Phosphatase 119 U/L (38-133) 10/19/16 13:14 Total Protein 6.8 g/dL (5.8-8.3) 10/19/16 13:14 Albumin 3.7 g/dL (3.0-4.8) 10/19/16 13:14 Globulin 3.0 gm/dL 10/19/16 13:14 Albumin/Globulin Ratio 1.2 (1.1-1.8) 10/19/16 13:14 Lipase 63 U/L (23-300) 10/19/16 13:14 Procalcitonin 0.23 NG/ML (0.19-0.49) 10/19/16 14:00 Venous Blood Potassium 4.5 mmol/L (3.6-5.2) 10/19/16 14:05 Urine Color Yellow (YELLOW) 10/19/16 16:00 Urine Appearance Clear (CLEAR) 10/19/16 16:00 Urine pH 5.5 (4.7-8.0) 10/19/16 16:00 Ur Specific [place] 1.025 (1.005-1.035) 10/19/16 16:00 Urine Protein 30 mg/dL (<30 mg/dL) H 10/19/16 16:00 Urine Glucose (UA) >=1000 mg/dL (NEGATIVE) 10/19/16 16:00 Urine Ketones >=80 mg/dL (NEGATIVE) 10/19/16 16:00 Urine Blood Small (NEGATIVE) H 10/19/16 16:00 Urine Nitrate Negative (NEGATIVE) 10/19/16 16:00 Urine Bilirubin Negative (NEGATIVE) 10/19/16 16:00 Urine Urobilinogen 0.2 E.U./dL (<1 E.U./dL) 10/19/16 16:00 Ur Leukocyte Esterase Negative Migel/uL (NEGATIVE) 10/19/16 16:00 Urine RBC 2 - 5 /hpf (0-2) 10/19/16 16:00 Urine WBC 0 - 2 /hpf (0-6) 10/19/16 16:00 Ur Epithelial Cells None /hpf (0-5) 10/19/16 16:00 Urine Bacteria Few (NEG) 10/19/16 16:00 Alcohol, Quantitative < 10 mg/dL (0-10) 10/19/16 14:20 Blood Type B POSITIVE 10/19/16 12:50 Antibody Screen Negative 10/19/16 12:50 BBK History Checked Patient has bt 10/19/16 12:50 Attending/Attestation - Attestation I have personally seen and examined this patient.: Yes I have fully participated in the care of the patient.: Yes I have reviewed all pertinent clinical information, including history, physical exam and plan: Yes Notes (Text): I have seen and examined the patient with the resident at the bedside. This is 36 year old male with history of uncontrolled DM, PUD, diabetic neuropathy, alcohol abuse, occasional smoker who got admitted for DKA, intractable nausea, vomiting, diarrhea, dehydration and is going thru alcohol withdrawal. Gap is closed now. He is already switched to Sc insulin. Denies any nausea, vomiting, diarrhea, abdominal pain, tremors, diaphoresis, visual or auditory hallucinations or anxiety. Patient is hemodynamically stable. GI consult appreciated. There is no need for endoscopy at urgent basis. Most likely it was secondary to mucosal tear in setting of recurrent vomiting. He has refused his morning labs today and wants to leave now. It was recommended to stay for atleast morning labs or finger sticks however he refused and left AMA. All the risk was explained to the patient. Upon discharge, patient will follow up with Dr Darío Juárez. Dr Robert Lloyd 10/30/16 15:00
== END 2016-10-21 11:36 | disposition left against medical advice (07) | DRG 294 ==
LOC: ED 11:27 → ERH 14:14 → CCU 15:33 → 3RSO 10-20 11:51
PROVIDERS: ADMIT Internal Medicine; ATTEND Hospitalist
DX: E10.10 Type 1 diabetes mellitus with ketoacidosis without coma (principal); E10.40 Type 1 diabetes mellitus with diabetic neuropathy, unspecified; K92.2 Gastrointestinal hemorrhage, unspecified; E86.0 Dehydration; F10.10 Alcohol abuse, uncomplicated; F17.200 Nicotine dependence, unspecified, uncomplicated; Z79.4 Long term (current) use of insulin; Z79.899 Other long term (current) drug therapy; Z87.11 Personal history of peptic ulcer disease; R40.2412 Glasgow coma scale score 13-15, at arrival to emergency department; R00.0 Tachycardia, unspecified; I45.10 Unspecified right bundle-branch block; R11.2 Nausea with vomiting, unspecified; R19.7 Diarrhea, unspecified